=== PATIENT | female | born 1985 | race Caucasian/White ===

== ENCOUNTER 2020-07-26 11:14 | Emergency (ER) | payer OTHER, SELFPAY ==
--- NOTE | 2020-07-26 11:32 | ED.ALLEREA ---
HPI - Allergic Reaction General Chief complaint: Allergic Reaction Stated complaint: ALLERGIC REACTION Time Seen by Provider: 07/26/20 11:40 Source: patient and RN notes reviewed Mode of arrival: ambulatory Limitations: no limitations History of Present Illness HPI narrative: 34-year-old female presents with concern for rash. Reports 4 to 5-day history of a rash on her back and stomach. Reports it is intermittently pruritic. She denies difficulty breathing, difficulty swallowing, swollen lips, swollen tongue. Denies rash on any other area of her body. Denies anyone else at home has similar rash. Denies change in bath products, home care products, medicines. Denies any exposure to poison sohail, insects. MD complaint: allergic reaction Related Data Home Medications Medication Instructions Recorded Confirmed lisdexamfetamine [Vyvanse] 70 mg DAILY 07/26/20 07/26/20 lorazepam 1 mg DAILY 07/26/20 07/26/20 propranolol 10 mg BID 07/26/20 07/26/20 triamcinolone acetonide 0.1 % TOPICAL TID 07/26/20 07/26/20 venlafaxine 150 mg PO DAILY 07/26/20 07/26/20 zaleplon 10 mg HS 07/26/20 07/26/20 Allergies Allergy/AdvReac Type Severity Reaction Status Date / Time No Known Allergies Allergy Verified 07/26/20 11:20 Review of Systems Review of Systems: Narrative: CONSTITUTIONAL: Denies malaise, chills, sweats, or fever. EYES: Denies visual changes, redness, or discharge. ENT: Denies swollen lips, swollen tongue, difficulty swallowing CARDIOVASCULAR: Denies chest pain, palpitations, or edema. RESPIRATORY: Denies cough or dyspnea. GASTROINTESTINAL: Denies abdominal pain, nausea, vomiting, diarrhea SKIN: Reports itchy rash on back and abdomen MUSCULOSKELETAL: Denies myalgia. NEUROLOGIC: Denies headache. All systems reviewed & are unremarkable except as noted in HPI and below PMFSH Family History Family History (Updated 06/15/16 @ 23:21 by DOCTOR UNKNOWN) Father Depression Asthma Patient's father is in good health Family history of allergic disorder Sibling Depression Patient's sister is in good health Family history of allergic disorder Mother Patient's mother is in good health Grandparent Family history of pancreatic cancer Family history of malignant neoplasm of esophagus Diabetes mellitus Social History Social History Alcohol intake: current Gender identity (if verbalized by the patient): Female Comments At time of signature, agree with nursing past medical, surgical, social and family history. There is no relevant family history pertinent to the presenting complaint Exam Narrative: Exam Narrative: GENERAL: Well-appearing, well-nourished, and in no acute distress. HEAD: Normocephalic, atraumatic. EYES: PERRLA, conjunctivae clear ENT: Nares clear. Mucous membranes moist. Oropharynx without edema, erythema or lesions. Tonsils not enlarged and without exudate. NECK: Supple. CHEST: No respiratory distress. Speaks in full sentences. HEART: Regular rate and rhythm. No murmur heard. Normal peripheral pulses. SKIN: Warm, dry. Erythematous papular rash noted on back and abdomen. No other rash noted. NEURO: Alert and oriented x3. PSYCH: Normal mood and affect Course Course Emergency Course: Patient is aware of diagnosis, understands and agrees to treatment plan. Anticipatory guidance given. Patient agrees to follow-up as directed and is aware of reasons to seek care at the emergency department. Portions of this record may have been created with voice recognition software Vital Signs Vital signs: Vital Signs Temperature 98.2 F 07/26/20 11:35 Pulse Rate 87 07/26/20 11:35 Respiratory Rate 16 07/26/20 11:35 Blood Pressure 117/82 07/26/20 11:35 Pulse Oximetry 100 07/26/20 11:35 Temperature 98.2 F 07/26/20 11:35 Pulse Rate 87 07/26/20 11:35 Respiratory Rate 16 07/26/20 11:35 Blood Pressure 117/82 07/26/20 11:35 Pulse Oximetry 100 07/26/20 11:35 Reviewed. MDM
[2020-07-26 11:35] VITALS: BP 117/82; PULSE 87; RESP 16; TEMP 36.8; O2SAT 100
== END 2020-07-26 11:56 | disposition home or self-care (01) ==
PROVIDERS: Emergency Provider Nurse Practitioner
DX: L25.9 Unspecified contact dermatitis, unspecified cause (principal); F41.9 Anxiety disorder, unspecified; F32.9 Major depressive disorder, single episode, unspecified; F90.9 Attention-deficit hyperactivity disorder, unspecified type
CPT/HCPCS: 99213; G0463

== ENCOUNTER → 2022-08-30 12:57 | Outpatient (CLI) | payer BC, SELFPAY ==
--- NOTE | ~2022-08-30 | US_ITS ---
EXAMINATION: US pelvic complete w TV DATE: 08/30/2022 13:33 INDICATION: Other disorders of the uterus TECHNIQUE: Multiple transabdominal and endovaginal sonographic images of the pelvis were obtained. COMPARISON: 01/12/2017 FINDINGS: The uterus measures 6.9 x 3.8 x 4.9 cm. The endometrial complex measures 7 mm. There is a 5 mm hyperechoic area in the myometrium adjacent to the endometrial complex. The right ovary measures 2.2 x 1.3 x 2.0 cm. The left ovary measures 2.6 x 1.0 x 1.1 cm. There is normal vascular flow in the ovaries. There is no free fluid in the pelvis. IMPRESSION: 1. Hyperechoic area in the myometrium adjacent to the endometrial complex of unclear etiology, possib ly fibroid or adenomyosis. Reviewed, dictated and finalized at location F. IMPRESSION: 1. Hyperechoic area in the myometrium adjacent to the endometrial complex of un clear etiology, possibly fibroid or adenomyosis.
== END ==
PROVIDERS: PCP Nurse Practitioner Family; Visit Provider Nurse Practitioner Family
DX: N85.00 Endometrial hyperplasia, unspecified (principal); N95.1 Menopausal and female climacteric states
CPT/HCPCS: 76830; 76856

== ENCOUNTER 2022-12-10 01:06 | Day surgery (SDC) | payer BC, SELFPAY ==
[2022-12-03 13:20] VITALS: BMI 27.4
--- NOTE | 2022-12-03 13:27 | PC.NURSE ---
Report to the Outpatient Waiting Room, entrance under the green pavilion located off [facility], at time 1115 on date 12/10/22. Planned Procedure Time: 1315. Time changes happen often and if your time is changed the preop area will call you the afternoon before. - You and your visitor will be asked to self-screen and do not enter if you have any COVID symptoms. - Only one visitor is requested with a max of two and NO children visitors are allowed at this time. - The patient visitor may be requested to leave or wait in car when not with patient due to distancing restrictions. - A mask is optional within the hospital. Patients may have clear liquids (water, carbonated beverages, clear teas, apple juice) until 3 hours prior to surgery with a maximum of 20 ounces. - No food from midnight until time of surgery Take the following medications with a SIP of water the morning of surgery: FLUOXETINE, PROPRANOLOL, LORAZEPAM IF NEEDED Medications to discontinue per physician: N/A Date to take last dose: N/A Please no make-up, nail tajik, hairspray, perfume, deodorant, or body powder the day of surgery. No jewelry (including any body piercings) or valuables the day of surgery, leave them at home. Please take a shower or bath the night before, or the morning of, surgery with an antibacterial soap. Wear comfortable, loose fitting clothing. - Jewelry must be removed prior to entering the operating room. Rings and piercings that are not removed may be cut off. - The hospital will not accept responsibility for valuables. - Please leave all valuables, including medications, at home the day of surgery. If you are going home after surgery, a licensed trailer driver must drive you home. - NO public transportation without another adult if you receive anesthesia. - We recommend that an adult stay with you for 24 hours following discharge. - We also recommend that you do not drive, make important decision, drink alcoholic beverages, or take any drugs that were not prescribed by your health care provider for at least 24 hours after your discharge time. Follow any additional instructions given to you from your surgeon. If you or anyone in your household have experienced Covid symptoms in the past week, please notify your surgeon or the nurse liaison at the phone number below for possible testing. Telephone instructions given to PT - ELADIO SANDERS and asked if any additional questions and then verbalized understanding. Patient advised to call surgeon office or pre surgery nurse liaison [phone] if any additional questions.
--- NOTE | 2022-12-10 09:09 | WPDANESEPPF ---
Anes - Initial Pre Proc Eval Procedure: Operation Date: 12/10/22 13:15 Proposed Procedures p Hysteroscopy with Dilation and Curettage - Ellyn Anderson MD Date/Time: 12/10/22 09:09 Surgeon: Ellyn Anderson MD Pre Op Diagnosis: Abnormal Ultrasound Patient Data Age: 36 Gender: F Height: 1.65 m Weight: 74.85 kg Allergies Allergy/AdvReac Type Severity Reaction Status Date / Time No Known Allergies Allergy Verified 12/10/22 11:33 Home Medications Medication Instructions Recorded Confirmed Type lisdexamfetamine 70 mg capsule 70 mg PO DAILY 07/26/20 12/10/22 History (Vyvanse) lorazepam 1 mg tablet 1 mg PO DAILY PRN Anxiety 07/26/20 12/10/22 History propranolol 10 mg tablet 10 mg PO BID 07/26/20 12/10/22 History zaleplon 10 mg capsule 10 mg PO HS PRN Insomnia 07/26/20 12/10/22 History fluoxetine 20 mg capsule 40 mg PO DAILY 12/03/22 12/10/22 History Patient hx anesthesia problems: none Family hx anesthesia problems: none Results Review: All pre-operative results and documents have been reviewed as part of the pre-operative evaluation. [facility] Past Medical History Medical History (Updated 12/10/22 @ 09:39 by Ellyn Anderson MD) Anxiety Depression Migraines MVP (mitral valve prolapse) Surgical History Surgical History (Updated 12/10/22 @ 09:37 by Ellyn Anderson MD) History of bilateral breast reduction surgery History of 2017 abruption History of tonsillectomy Family History Family History (Updated 06/15/16 @ 23:21 by DOCTOR UNKNOWN) Father Depression Asthma Patient's father is in good health Family history of allergic disorder Sibling Depression Patient's sister is in good health Family history of allergic disorder Mother Patient's mother is in good health Grandparent Family history of pancreatic cancer Family history of malignant neoplasm of esophagus Diabetes mellitus Social History Social History Smoking status: Never smoker Alcohol intake: current Alcohol use details: 1-2/MONTH Substance use: never Substance use type: does not use Living arrangements: with family Additional living arrangements comments: SON Gender identity (if verbalized by the patient): Female Spiritual care concerns: No Anes - Eval Final PreProcedure Day of Procedure 12/10/22 09:09 Patient weight: overweight Heart: regular rate and rhythm Lungs: clear to auscultation and normal air movement Airway: Mallampati scale class II Neurological: alert and oriented Last oral intake: >/= 8 hours ASA classification: II Emergent: no Anesthetic plan: proceed Anesthesia type and monitoring: general GIVS and LMA Results Review: All pre-operative results and documents have been reviewed as part of the pre-operative evaluation. Informed Consent: The patient's anesthetic plan and its attendant risks and benefits were discussed with the patient/family/POA. Questions were solicited and answers provided to the satisfaction of the patient/family/POA.
--- NOTE | 2022-12-10 09:33 | WPDHPUPDATE1 ---
History and Physical Update Update Date/Time: 12/10/22 09:33 History and Physical has been reviewed, including an updated exam of the patient. There are NO changes in the patient's condition. Risks, benefits, and alternatives have been discussed and questions answered. Patient agrees to proceed with procedure.
--- NOTE | 2022-12-10 09:33 | PM.HPGS ---
History of Present Illness History of Present Illness Consent: Risks, benefits, and alternatives have been discussed and questions answered. Patient agrees to proceed with procedure. Chief complaint: Abnormal Ultrasound Narrative: Cayla Bills is a 36 year old female with an abnormal hyperechoic area of the myometrium adjacent to the endometrial complex of uncertain etiology. Patient states no abnormal bleeding. Was recommended to further evaluate with hysteroscopy and D& C. Risks of infection, bleeding, perforation, and possible pathology are reviewed. Patient voices understanding and agrees to proceed. Review of Systems Constitutional: Constitutional: Reports fatigue Musculoskeletal: Musculoskeletal: Reports back pain and Reports neck pain Neurologic: Reports headache(s) Psychiatric: Psychiatric: Reports anxiety and Reports depression PMFSH Past Medical History Medical History (Updated 12/10/22 @ 09:39 by Ellyn Anderson MD) Anxiety Depression Migraines MVP (mitral valve prolapse) Surgical History Surgical History (Updated 12/10/22 @ 09:37 by Ellyn Anderson MD) History of bilateral breast reduction surgery History of 2017 abruption History of tonsillectomy Family History Family History (Updated 06/15/16 @ 23:21 by DOCTOR UNKNOWN) Father Depression Asthma Patient's father is in good health Family history of allergic disorder Sibling Depression Patient's sister is in good health Family history of allergic disorder Mother Patient's mother is in good health Grandparent Family history of pancreatic cancer Family history of malignant neoplasm of esophagus Diabetes mellitus Social History Social History Smoking status: Never smoker Alcohol intake: current Alcohol use details: 1-2/MONTH Substance use: never Substance use type: does not use Living arrangements: with family Additional living arrangements comments: SON Gender identity (if verbalized by the patient): Female Spiritual care concerns: No Meds Home Medications and Allergies Home Medications Medication Instructions Recorded Confirmed Type lisdexamfetamine 70 mg capsule 70 mg PO DAILY 07/26/20 12/03/22 History (Randy) lorazepam 1 mg tablet 1 mg PO DAILY PRN Anxiety 07/26/20 12/03/22 History propranolol 10 mg tablet 10 mg PO BID 07/26/20 12/03/22 History zaleplon 10 mg capsule 10 mg PO HS PRN Insomnia 07/26/20 12/03/22 History fluoxetine 20 mg capsule 40 mg PO DAILY 12/03/22 12/03/22 History Allergies Allergy/AdvReac Type Severity Reaction Status Date / Time No Known Allergies Allergy Verified 12/03/22 13:17 Exam Const: General: healthy appearing and alert Orientation/consciousness: patient oriented x3 Resp: Effort & Inspection: normal respiratory effort GI: GI Palp: Yes Soft to palpation, No Tenderness to palpation present (GI) and No Palpable mass present : External Female Exam: normal external appearance Speculum Exam - Vagina: normal appearance of the vagina and normal vaginal discharge Speculum Exam - Cervix: normal appearance of the cervix Bimanual exam- vagina & uterus: uterine size normal and consistency normal Bimanual Exam- Adnexa, other: normal adnexae and No adnexal tenderness Neuro: General: patient oriented x3 Assessment and Plan Assessment and plan (1) Abnormal pelvic ultrasound: Code(s): R93.89 - Abnormal findings on diagnostic imaging of other specified body structures Status: Acute Assessment and Plan: plan to proceed with D&C hysteroscopy
[2022-12-10 11:32] VITALS: BP 103/82; PULSE 89; RESP 20; TEMP 36.8; O2SAT 98
[2022-12-10] MEDS: ACETAMINOPHEN 500 MG TABLET 1000 MG PO (11:37)
[2022-12-10] MEDS: LACTATED RINGERS 1,000 ML 30 ML IV CONT (11:55)
[2022-12-10] MEDS: LIDOCAINE HCL 1% PF 30 ML VIAL 10 ML INFILTRATE (12:49)
[2022-12-10 13:05] VITALS: BP 120/65; PULSE 62; RESP 14; O2SAT 98
--- NOTE | 2022-12-10 13:06 | W.PM.PROC2 ---
Procedure Note - Detailed Date of Procedure 12/10/22 Pre-op Diagnosis Abnormal Ultrasound Post-op Diagnosis Same Procedure Performed D&C hysteroscopy Surgeon Ellyn Anderson MD Anesthesia MAC and Local Description of Procedure The patient has been taken to the operating room and placed under anesthesia in the dorsal position. She was prepped and draped in the usual sterile fashion. The bivalve speculum was placed in the vagina and the cervix grasped on the anterior lip with a tenaculum. The cervix is injected in each quadrant with 1% lidocaine. The uterus is sounded to 9cm and noted to be retroverted. The cervix is serially dilated to an 8 Hegar. The diagnostic hysteroscope was placed with no abnormalities noted. The hysteroscope was removed and the sharp curette used to curette the endometrium until a good uterine cry was noted in all areas. The tenaculum was removed and the site noted to be bleeding briskly. Monsel's solution was applied with good hemostasis noted. Sponge, needle, and instrument counts are correct per the OR staff. Patient is awakened from anesthesia and taken to recovery in stable condition. Estimated Blood Loss 5 Drains No Packing No Pathology Yes ( Endometrial curettings) Complications No immediate complications Condition Stable Disposition PACU
[2022-12-10] MEDS: KETOROLAC 30 MG/ML VIAL (*BKC) IV PUSH (13:17)
[2022-12-10 13:35] VITALS: BP 100/66; PULSE 68; RESP 16; O2SAT 97
[2022-12-10 14:05] VITALS: BP 103/75; PULSE 61; RESP 16; O2SAT 97
[2022-12-10] MEDS: oxyCODONE HCL (*CRX) 5 MG TAB IR PO (14:12)
[2022-12-10 14:35] VITALS: BP 101/75; PULSE 65; RESP 16
== END 2022-12-10 14:50 | disposition home or self-care (01) ==
PROVIDERS: Visit Provider Obstetrics & Gynecology Gynecology
PROC: 0U5B8ZZ Destruction of Endometrium, Via Natural or Artificial Opening Endoscopic (ICD-10-PCS; CPT 58563; principal; 2022-12-10 13:15)
DX: R93.89 Abnormal findings on diagnostic imaging of other specified body structures (principal); I34.1 Nonrheumatic mitral (valve) prolapse; F41.9 Anxiety disorder, unspecified; F32.A Depression, unspecified
CPT/HCPCS: 58558; 88305; A9270; J1885; J2250; J2704; J3010; J7030; J7120

== ENCOUNTER 2024-12-08 23:56 | Emergency (ER) | payer OTHER, SELFPAY ==
[2024-12-09 00:08] VITALS: BP 102/76; PULSE 82; RESP 15; TEMP 36.8; O2SAT 100
--- NOTE | 2024-12-09 00:55 | ED_ITS ---
HPI - Eye Problem General Chief complaint: Eye Problems Stated complaint: eye pain Time Seen by Provider: 12/09/24 00:22 History of Present Illness HPI Narrative: Patient is a 38-year-old female who presents to the emergency department this evening complaining of pain to the right eye. Patient states that she woke up this morning and noticed that her right eye is red and unsure of what caused it. Admits that she does have some itching as well. States that pain progressively got worse throughout the day so she decided to come to the emergency department for further evaluation. Denies any known irritants, any new face wash or makeup, and does not believe that she got any foreign bodies in her eye. Denies any additional symptoms or concerns at this time. Related Data Home Medications ?Medication ?Instructions ?Recorded ?Confirmed ?Last Taken ?Type lorazepam 1 mg tablet 1 mg PO DAILY PRN Anxiety 07/26/20 05/25/24 12/09/22 History propranolol 10 mg tablet 10 mg PO BID 07/26/20 05/25/24 12/09/22 History zaleplon 10 mg capsule 10 mg PO HS PRN Insomnia 07/26/20 05/25/24 Unknown History fluoxetine 20 mg capsule 40 mg PO DAILY 12/03/22 05/25/24 12/10/22 09:00 History cyanocobalamin (vitamin B-12) 1,000 mcg PO DAILY 12/30/23 05/25/24 Unknown History 1,000 mcg capsule ergocalciferol (vitamin D2) 1,250 1,250 mcg PO WEEKLY 12/30/23 05/25/24 Unknown History mcg (50,000 unit) capsule (Vitamin D2) fluoxetine 20 mg capsule 20 mg PO DAILY 12/30/23 05/25/24 Unknown History levonorgestrel (Mirena) 1 device intrauterine ONCE 12/30/23 05/25/24 Unknown History methylphenidate HCl 80 mg 80 mg PO QHS 05/25/24 05/25/24 Unknown History capsule,delayed release,ext release sprinkle (Jornay PM) Allergies Allergy/AdvReac Type Severity Reaction Status Date / Time No Known Allergies Allergy Verified 12/09/24 00:17 Review of Systems Review of Systems: All systems are reviewed and are negative unless stated otherwise in the HPI. [facility] Past Medical History Medical History Heart disease Migraines Depression Anxiety MVP (mitral valve prolapse) Surgical History Surgical History History of hysteroscopy History of bilateral breast reduction surgery History of tonsillectomy History of 2017 abruption Family History Family History Father Depression Asthma Patient's father is in good health Family history of allergic disorder Sibling Depression Patient's sister is in good health Family history of allergic disorder Mother Patient's mother is in good health Grandparent Family history of pancreatic cancer Family history of malignant neoplasm of esophagus Diabetes mellitus Social History Social History Smoking status: Never smoker Alcohol intake: current Alcohol use details: 1-2/MONTH Substance use: never Substance use type: does not use Do You Feel Safe in your Home?: Yes Lack of Transportation: No Lack of Food: Never True Current Housing: I Have Housing Concerned About Future Housing: No Difficulty Paying Gas/Electric Bills: No Difficulty Paying for Meds: No Currently Unemployed: No Education: Bachelor's Degree Difficulty w/ Childcare or Family Care: No Living arrangements: with family Additional living arrangements comments: SON Gender identity (if verbalized by the patient): Female Spiritual care concerns: No Exam Narrative: General: Alert, awake, afebrile, in no acute distress. HEENT: PERRL, no rhinorrhea, no post nasal drip, oropharynx clear, right conjunctival injection, intact EOM. Neck: Trachea midline, no JVD, no lymphadenopathy. Cardiovascular: Regular rate and rhythm, no murmurs, rubs or gallops, no peripheral edema. Respiratory: Clear to auscultation bilaterally, no tachypnea, no wheezing, no rhonchi, no rubs, no respiratory distress. Abdomen: Soft, nontender, nondistended, no rebound, no guarding, no peritoneal signs. Musculoskeletal: No joint swelling or deformity, normal muscle tone. Skin: No rashes or petechia, no signs of infection. Psychiatric: Alert and oriented, normal behavior and judgment for situation. Neurological: Alert and oriented to person, place, and time. Follows all commands. No focal deficits, speech is clear and fluent. Course Vital Signs Vital signs: Vital Signs Temperature 98.3 F 12/09/24 00:08 Pulse Rate 82 12/09/24 00:08 Respiratory Rate 15 12/09/24 00:08 Blood Pressure 102/76 12/09/24 00:08 Pulse Oximetry 100 12/09/24 00:08 Oxygen Delivery Room Air 12/09/24 00:08 Temperature 98.3 F 12/09/24 00:08 Pulse Rate 82 12/09/24 00:08 Respiratory Rate 15 12/09/24 00:08 Blood Pressure 102/76 12/09/24 00:08 Pulse Oximetry 100 12/09/24 00:08 Oxygen Delivery Room Air 12/09/24 00:08 MDM - Eye Problem MDM Narrative Medical decision making narrative: The patient was evaluated by myself in the emergency department. History is obtained from patient who is an independent historian and physical exam was performed. External medical records were reviewed at this time. Patient's right eye was stained with fluorescein dye and tetracaine drops under Wood's lamp revealing a corneal abrasion at the 9 o'clock position. No foreign body identified. Patient was informed that she will be started on antibiotic eye drops to use as prescribed and that she will need to follow-up with her eye doctor within the next 48 hours and patient is agreeable with this plan. Patient was started with ofloxacin eyedrops in the emergency department and was instructed that she will continue this at home and patient is agreeable. Differential diagnosis considerations include bacterial versus viral conjunctivitis, corneal abrasion. Comorbidities impacting this visit include none. I have evaluated and discussed social determinants of health with the patient that could potentially impact subsequent diagnosis and treatment plans. On repeat assessment of the patient, reevaluation revealed that the patient is doing well and is in no acute distress. Patient symptoms have improved since she arrived to our emergency department. Repeat vital signs were all reviewed and noted to be stable. Differential diagnosis and treatment plan were discussed with the patient at bedside. Patient agrees with discussion and after shared medical decision making agrees with discharge. All questions were answered to the patient's satisfaction. Patient will follow up with Ophthalmology in 2-3 days. Patient was provided with strict return precautions and instructed to return to the emergency department if any new or worsening symptoms develop. The patient was discharged in stable condition. Discharge Plan Discharge Clinical Impression: Abrasion, corneal Patient Disposition: Home, Self-Care Condition: Improved Instructions: Antibiotic Form Additional Instructions: Please follow-up with ophthalmology or with the [facility] within the next 2-3 days. Phone number for [facility] is [phone], address: [address] [place] [id number]. Return to the emergency department if any new or worsening symptoms develop. Use antibiotics drops as instructed, 2 drops in the right 4 times daily for 5 days. Patient Language: Puerto Rican Prescriptions: No Action propranolol 10 mg tablet 10 mg PO BID zaleplon 10 mg capsule 10 mg PO HS PRN (Reason: Insomnia) lorazepam 1 mg tablet 1 mg PO DAILY PRN (Reason: Anxiety) fluoxetine 20 mg capsule 20 mg PO DAILY cyanocobalamin (vitamin B-12) 1,000 mcg capsule 1,000 mcg PO DAILY ergocalciferol (vitamin D2) [Vitamin D2] 1,250 mcg (50,000 unit) capsule 1,250 mcg PO WEEKLY Mirena 21 mcg/24 hours (8 yrs) 52 mg intrauterine device 1 device intrauterine ONCE Rx Instructions: Inserted 01/09 Jornay PM 80 mg capsule,del rel,ext rel sprink 80 mg PO QHS fluconazole 150 mg tablet 150 mg PO ONCE Qty: 2 0RF Rx Instructions: May repeat dose in 72 if still symptoms. fluoxetine 20 mg capsule 40 mg PO DAILY Follow-up/Referrals: PHYSICIAN,[facility] [Primary Care Provider] - 3 Days Time of Disposition: 00:59
[2024-12-09 01:39] VITALS: BP 106/54; PULSE 82; RESP 15; O2SAT 100
[2024-12-09] MEDS: OFLOXACIN 0.3% OPHTH SOLN 5 ML BTL 1 DROP RIGHT EYE (01:39)
--- OUTSIDE RECORDS SUMMARY | 2024-12-10 20:48 | XMS_ITS | Data Portability ---
Author Organization [facility], Main Office Address [address] [place] [address] Assessment No assessment recorded. Plan of Treatment Reminders Order Date Submit Date Provider Last Modified By Organization Details Last Modified Time Details Appointments None recorded. Lab vitamin D, 25-hydroxy, total, serum 2022 023 CODI Gonzalez, 2022 Luis Stevenson, [address], [place], [address], 3 14:48:13 prolactin, serum 2022 023 CODI Gonzalez, 2022 Luis Stevenson, [address], [place], [address], 3 14:39:34 dhea-sulfat e, serum 2022 023 CODI Gonzalez, 2022 Luis Stevenson, [address], [place], [address], 3 14:39:34 estradiol, serum 2022 023 CODI Gonzalez, 2022 Luis Stevenson, [address], [place], [address], 3 14:39:33 lh + FSH, serum 2022 023 CODI Gonzalez, 2022 Luis Stevenson, [address], [place], [address], 3 14:39:32 testosteron e, free + total, serum 2022 023 CODI Gonzalez, 2022 Luis Stevenson, [address], [place], [address], 3 14:39:33 progesteron e, serum 2022 023 CODI Gonzalez, 2022 Luis Stevenson, [address], [place], [address], 3 14:39:32 insulin, serum 2022 023 CODI Gonzalez, 2022 Luis Stevenson, [address], [place], [address], 3 14:39:32 folate, serum 2022 023 CODI Gonzalez, 2022 Luis Stevenson, [address], [place], [address], 3 14:34:33 vitamin B12, serum 2022 023 CODI Gonzalez, 2022 Luis Stevenson, [address], [place], [address], 3 14:34:32 TSH + free T4, serum 2022 023 CODI Gonzalez, 2022 Luis Stevenson, [address], [place], [address], 3 14:34:33 iron + total iron-bindin g capacity (TIBC), serum 2022 023 CODI Gonzalez, 2022 Luis Stevenson, [address], [place], [address], 3 14:34:33 CMP, serum or plasma 2022 023 CODI Gonzalez, 2022 Luis Stevenson, [address], [place], [address], 3 14:34:32 TSH + free T4, serum 2022 023 CODI Gonzalez, 2022 Luis Stevenson, [address], [place], [address], 3 14:39:31 triiodothyr onine free, QN, IA, serum or plasma 2022 023 [facility], 2022 Luis Stevenson, [address], [place], [address], 3 14:39:33 T3, free, serum or plasma 2022 023 [facility], 2022 Luis Stevenson, [address], [place], [address], 3 14:39:32 TSH, serum or plasma 2022 023 [facility], 2022 Luis Stevenson, [address], [place], [address], 3 14:39:32 T4, free, serum 2022 023 [facility], 2022 Luis Stevenson, [address], [place], [address], 3 14:39:34 acth, plasma 2022 023 [facility], 2022 Luis Stevenson, [address], [place], [address], 3 14:39:33 thyroid peroxidase (tpo) Ab, serum 2022 023 [facility], 2022 Luis Stevenson, [address], [place], [address], 3 14:39:31 cortisol, am, serum 2022 023 [facility], 2022 Luis Stevenson, [address], [place], [address], 14:39:33 iodine, serum 2022 023 [facility], 2022 Luis Stevenson, [address], [place], [address], 3 14:40:06 Referral None recorded. Procedures None recorded. Surgeries None recorded. Imaging None recorded. Medication Orders ergocalcife rol (vitamin D2) 1,250 mcg (50,000 unit) capsule 2022 023 [id number], [address] [facility], [place], [place], [id number], 3 14:48:11 cyanocobala min (vit B-12) 1,000 mcg/mL injection solution 2022 023 [facility] #[id number], [address], [place], [place], [id number], 3 14:34:30 Patient TargetsNo targets recorded. Patient InstructionsNo instructions recorded. Reason for Referral None Reported. Results Created Date Observation Date Name Description Value Unit Range Abnormal Flag Note LastModifiedBy Organization Detail LastModifiedTime Result Notes None recorded. Problems Name Problem SNOMED Code Status Onset Date Resolution Date Notes Provider Name and Address Organization Details Recorded Time Insomnia 938148747 Active 2018 Not Available [facility] 3 10:45:50 Depressive disorder 99941926 Active 2018 Not Available [facility] 3 10:45:50 Fatigue 46780947 Active 2022 MD [address], [place], [address] , [employer] 3 14:28:57 Disorder of vitamin B12 861693395 Active 2022 MD [address], [place], [address] , [employer] 3 14:31:44 Irregular periods 97253427 Active 2022 MD [address]ina [address], [place], [address] , [employer] 14:36:40 Vitamin D deficiency 50312573 Active 2022 Delisa Fernandez MD [address] [facility] [facility] [address], [place], [address] , [facility] [employer] [facility] 14:47:39 Problem Notes None recorded. Procedures Surgical History Date Name Laterality Status Provider Name and Address Organization Details Recorded Time Tonsillectomy completed Miranda Marie [facility] [employer] [facility] 01/17/2023 14:12:48 Breast reduction completed Miranda Bobkeysha [facility] [employer] [facility] 01/17/2023 14:12:53 delivery completed Miranda Bobkeysha [facility] [employer] [facility] 01/17/2023 14:12:59 Imaging Results None recorded. Procedure Notes None recorded. Medical Equipment None Reported. Medications Name Sig Start Date Stop Date Status Note LastModified by Organization Details LastModified Time insulin syringe 31g x 5/16 1 ml mi insulin syringe 31g x 5/16 1 ml mi sc active Not Available Not Available Not Available fluoxetine 40 mg capsule twice a day. active Not Available Not Available No t Available venlafaxine ER 37.5 mg capsule,ext ended release 24 hr 01/17 completed Not Available Not Available Not Available fluconazole 150 mg tablet 07/01 completed Not Available Not Available Not Available hydrocodone 5 mg-acetamin ophen 325 mg tablet 06/19 completed Not Available Not Available Not Available clonazepam 0.5 mg tablet 07/01 completed Not Available Not Available Not Available sertraline 100 mg tablet 06/19 completed Not Available Not Available Not Available venlafaxine ER 150 mg capsule,ext ended release 24 hr 01/17 completed Not Available Not Available Not Available penicillin V potassium 500 mg tablet 06/19 completed Not Available Not Available Not Available hydroxyzine HCl 50 mg tablet 06/19 completed Not Available Not Available Not Available sulfamethox azole 800 mg-trimetho prim 160 mg tablet 01/17 completed Not Available Not Available Not Available bupropion HCl SR 100 mg tablet,12 hr sustained-r elease 01/17 completed Not Available Not Available Not Available propranolol 10 mg tablet active Not Available Not Available Not Available alprazolam 0.25 mg tablet 06/19 completed Not Available Not Available Not Available amitriptyli ne 25 mg tablet 06/19 completed Not Available Not Available Not Available cephalexin 500 mg capsule 06/19 completed Not Available Not Available Not Available cyanocobala min (vit B-12) 1,000 mcg/mL injection solution Inject 1 mL every week by subcutane ous route in the morning for 90 days. active Not Available Not Available No t Available dextroamphe tamine-amph etamine 20 mg tablet TAKE 1 TABLET BY MOUTH TWICE DAILY 01/17 completed Not Available Not Available Not Available buspirone 7.5 mg tablet 06/19 completed Not Available Not Available Not Available insulin syringe U-100 with needle 1 mL 31 gauge x 04/02 USE TO INJECT WEEKLY active Not Available Not Available No t Available hydroxyzine HCl 25 mg tablet TK 1 T PO BID PRF ITCHING OR FEELING ANXIOUS 01/17 completed Not Available Not Available Not Available zaleplon 10 mg capsule TAKE 1 CAPSULE BY MOUTH EVERY DAY AT BEDTIME active Not Available Not Available No t Available ergocalcife rol (vitamin D2) 1,250 mcg (50,000 unit) capsule TAKE 1 CAPSULE BY MOUTH 1 TIME A WEEK WITH A FULL MEAL active Not Available Not Available No t Available lorazepam 1 mg tablet TAKE 1 AND 1/2 TABLETS BY MOUTH EVERY DAY NEEDED active Not Available Not Available No t Available ondansetron 4 mg disintegrat ing tablet 01/17 completed Not Available Not Available Not Available fluoxetine 20 mg capsule TAKE 3 CAPSULES BY MOUTH EVERY DAY 01/17 completed Not Available Not Available Not Available sertraline 50 mg tablet 06/19 completed Not Available Not Available Not Available buspirone 15 mg tablet 06/19 completed Not Available Not Available Not Available nitrofurant oin monohydrate /macrocryst als 100 mg capsule TAKE 1 CAPSULE BY MOUTH EVERY 12 HOURS 01/17 completed Not Available Not Available Not Available eszopiclone 2 mg tablet 01/17 completed Not Available Not Available Not Available Vyvanse 50 mg capsule 06/19 completed Not Available Not Available Not Available Vyvanse 70 mg capsule TAKE 1 CAPSULE BY MOUTH EVERY DAY active Not Available Not Available No t Available Vyvanse 60 mg capsule TAKE 1 CAPSULE BY MOUTH EVERY MORNING FOR 30 DAYS 07/02 completed Not Available Not Available Not Available Vyvanse 40 mg capsule 06/19 completed Not Available Not Available Not Available melatonin 5 mg tablet TK 3 TS PO QHS active Not Available Not Available No t Available Latuda 20 mg tablet 01/17 completed Not Available Not Available Not Available CHARTER COORDINATOR-PNV-DHA 28 mg iron-1 mg-200 mg capsule 07/02 completed Not Available Not Available Not Available L-Methylfol ate Forte 7.5 mg-90.314 mg capsule 01/17 completed Not Available Not Available Not Available Belsomra 15 mg tablet TAKE 1 TABLET BY MOUTH EVERY DAY AT BEDTIME 01/17 completed Not Available Not Available Not Available Belsomra 10 mg tablet TAKE 1 TABLET BY MOUTH EVERY DAY AT BEDTIME 01/17 completed Not Available Not Available Not Available Belsomra 20 mg tablet TAKE 1 TABLET BY MOUTH EVERY DAY AT BEDTIME 01/17 completed Not Available Not Available Not Available Aristada 662 mg/2.4 mL suspension, extend.rel. IM syringe 01/17 completed Not Available Not Available Not Available Aristada 441 mg/1.6 mL suspension, extend.rel. IM syringe 01/17 completed Not Available Not Available Not Available Ozempic 0.25 mg or 0.5 mg (2 mg/1.5 mL) subcutaneou s pen injector INJECT 0.5MG SUBCUTANE OUS EVERY WEEK active Not Available Not Available No t Available Vitals Date Recorded Body weight Body temperature Heart rate Respiratory rate Body height Body mass index (BMI) Systolic blood pressure Diastolic blood pressure Provider Name and Address Organization Details Last Updated DateTime 3 06135.1 5 g 97.6 [degF] 78 /min 17 /min 165.1 cm 27.3 kg/m2 128 mm[Hg] 82 mm[Hg] Miranda Marie CMA [employer] 14:08:29 Social History Question Answer Notes LastModified by Organizat ion Details LastModified Time Tobacco Smoking Status Never Smoker Miranda Marie CMA null, [employer] [facility] 01/17/2023 14:12:34 What Is Your Level Of Alcohol Consumption? Occasional [email or web address] Information not available 01/17/2023 Sex: Unknown Functional Status None recorded. Mental Status None recorded. Family History Nothing Reported. Medical History Condition Response BLINDNESS N RHEUMATIC FEVER N MRSA N BACK INJECTIONS N INFECTIOUS DISEASE N LUNG DISEASE/DISORDER N HEART ARRHYTHMIA N HISTORY OF DRUG ABUSE N INSOMNIA N ESRD N COPD N RADIATION / CHEMOTHERAPY N HIGH CHOLESTEROL / HYPERLIPIDEMIA N EYE PROBLEMS N HYPERTHYROIDISM N PVD N BLOOD DISEASES N EDEMA N SURGERY N HYPOTHYROIDISM N SHINGLES N DEPRESSION (INCLUDING POST ) N HAVE YOU BEEN HOSPITALIZED OR SEEN IN [facility] ER IN THE PAST YEAR ? N FAILED BACK SYNDROME N STROKE/TIA N THYROID DISEASE N BENIGN PROSTATIC HYPERPLASIA N POLYCYSTIC OVARIES N OBESITY N EXCESSIVE PERSPIRATION N GERD/NAUSEA N ANEURYSM N OSTEOPOROSIS N Do you have Advance directive? N ARTHRITIS N USE OF BLOOD THINNERS N NO SIGNIFICANT PAST MEDICAL HISTORY N SKIN PROBLEMS N DIABETES, TYPE N VON WILLIBRAND'S DISEASE N PARATHYROID DISEASE N BLOOD CLOTS N POST LAMINECTOMY SYNDROME N HEPATITIS / LIVER DISEASE N GOUT N ALZHEIMER'S DISEASE N ARTERIAL INSUFFICIENCY N HERPES N RETINOPATHY N HEADACHES/MIGRAINES N SEIZURES/EPILEPSY N GI PROBLEMS N Low Testosterone N DIZZINESS N HEART DISEASE/HEART PROBLEMS N AIDS/HIV N KIDNEY DISEASE N LIVER DISEASE N MALE HYPOGONADISM N NEUROPSYCHOLOGICAL N HYPERTENSION N CANCER: SPECIFY N TOURETTE'S N BLOOD TRANSFUSION N ANEMIA/BLOOD DISORDER N ATRIAL FIBRILLATION N AUTOIMMUNE DISEASE N TUBERCULOSIS N GLAUCOMA N Gynecological HistoryNo gynecological history recorded. Obstetrics History GPAL:G 0 P 0 0 0 0 Past Encounters Encounter ID Performer Location Encounter Start Date Encounter Closed Date Diagnosis/Indication Diagnosis SNOMED-CT Code Diagnosis ICD10 Code Diagnosis Note [id number] Delisa Fernandez MD [facility] [address] [place] [address] 01/17/2023 13:51:27 01/17/2023 14:51:45 Fatigue 33243136 R53.83 Will send for thyroid antibodies to screen for autoimmune thyroid disease in addition to CBC, CMP, acth/corti annmarie ferritin and B12/folate to screen for other potential secondary causes of fatigue. She had mild enlargemen t of her thyroid lobes with no change in echogenici ty at this time and no evidence of nodules- may be early iodine deficiency - will send in serum levels to screen further. Disorder o f vitamin B12 566343974 E53.8 Trial on B12 injections as she doesn't absorb tablets/ vitamins regularly. Irregular periods 042519 07 N92.6 Send for hormone panel to screen for any evidence of hyperinsul inemia or hyperandro genemia. Vitamin D deficiency 347 35493 E55.9 Found to be deficient on previous labwork- will start on vitamin D 94573 IU once weekly. Spent up to 45 minutes preparing to see the patient (eg, review of tests), obtaining and/or reviewing separately obtained history, performing a medically appropriat e examinatio n and evaluation , counseling and educating the patient, ordering medication s, tests, along with documentin g clinical informatio n in the electronic health record, independen tly interpreti ng results and communicat ing results to the patient. RTC in 2-3 months. Patient was provided a handwritte n lab order which contains our fax number. If she chooses to go outside of the [facility] system to obtain labwork she was advised to provide our fax number and my informatio n to the lab she will be obtaining labwork from in order to have her labs properly forwarded over for me to review so there is no loss of follow up due to use of outside network. She was also advised to contact our clinic informing us that she has completed her labwork so we are aware we will need to reach out to the appropriat e laboratory to request her results be forwarded to us so I might have the ability to review and make further medical decision making in her case. She voiced understand ing. Thank you for this consultati on. Health Concerns Section Related Observation LastModified by Organization Detai ls LastModified Time None Recorded Concern Status LastModified by Organization Details LastModified Time None Recorded Advance Directives Directive None Recorded Payers Encounter Date Sequence Insurance Name Policy Number Policy Matthew Covered Member ID Matthew Member ID Guarantor Name 01/17/2023 1 [place] [id number] Cayla Bills [id number] Cayla Bills Notes Date Note Type Note Provider Name and Address Organization Details Recorded Time 01/17/2023 text/html 37 yo female com es in as referral for management of thyroid concerns, fatigue and hx of irregular cycles. thyroid u/s from 11/02/22:enlargeme nt of right and left lobes with no nodules, vascularity normal and normal appearance Her mother has hx of hashimotos thyroiditis. She has an aunt on thyroid replacement. labs older from 2020:TSH of 0.320 uIU/mlFT4 of 1.28 ng/dLvit D 28 ng/mL She does feel like she has most symptoms of thyroid disease. However She went through depression 5 years ago and on fluoxetine. She was trying to lose weight for some time and even with exercise - she saw no results. She is on ozempic 0.5 mg once weekly- she doesn't take this consistently and very sporadic in how she takes this. She has a lot of fatigue and maybe having a young child. She was looking into taking testosterone pellets-she had a pelvic ultrasound and was found to have growth in her uterus- she had hysteroscopy and this was normal-had IUD placed and her periods were overall normal. No significant bleeding or pain. Delisa Fernandez MD [address] [place] [address], [place], [address], [place] - [facility] 01/17/2023 14:51:11 OBGyn Episode No OBEpisode recorded.
--- OUTSIDE RECORDS SUMMARY | 2024-12-10 20:48 | XMS_ITS | Clinical Summary ---
Author Organization [facility] Address [address] [place] [address] Care Team Providers Care Orthodontist Vice President Name Role Phone Janie Chapman Primary Care Pr ovider Source Comments [facility],non-owned Affiliates and Associated Physician Practices is amultiple site organization consisting of ambulatory clinics and hospital sitesin [place], [place], [place] and [place]. This disclosure is being madepursuant to the Care Everywhere program and may not contain all information available regarding this patient. Last updated 18.[facility] Allergies No known active allergies Medications * Be aware that medications may not be up to date on this document. Alwaysverify current medications with the patient. Medication Sig Dispensed Refills Start Date End Date Status zaleplon (SONATA) 10 MG capsuleIndications :Insomnia Take 1 capsule by mouth nightly as needed for Insomnia Reasons: Trouble Sleeping 30 capsule 1 08/28/2017 Active melatonin 5 MG tabletIndications: Insomnia Take 3 tablets by mouth at bedtime Reasons: Trouble Sleeping 90 tablet 08/28/2017 Active Additional Information Patient taking differently: 20 mgOral AT BEDTIME, Indications: Insomnia, Reported on 03/11/2019 FLUoxetine HCl (PROZAC PO) Take 80 mg by mouth Acti ve LORAZEPAM PO Take 1 mg by mouth 2 times daily Active lisdexamfetamine (VYVANSE) 60 MG capsule Take 70 mg by mouth once daily Active Ergocalciferol (VITAMIN D2 PO) Take 50,000 Units by mouth every 7 days Active cyanocobalamin (VITAMIN B-12) 1000 MCG tablet Take 1,000 mcg by mouth once daily Active lurasidone (LATUDA) 20 MG tablet Take 20 mg by mouth daily with breakfast Active Levonorgestrel (MIRENA, 52 MG, IU) Active Active Problems Problem Noted Date Diagnosed Date 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 Depressive episode 08/28/2017 depression 08/28/2017 Family History Medical History Relation Name Comments Hypertension Father Diabetes - Type 2 Paternal Grandfather Relation Name Status Comments Father Alive Mother Alive Paternal Grandfather Social History Tobacco Use Types Packs/Day Years Used Date Smoking Tobacco: Never Smokeless Tobacco: Never Alcohol Use Standard Drinks/Week Comments Yes 1 (1 standard drink = 0.6 oz pur e alcohol) socially Sex and Gender Information Value Date Recorded Sex Assigned at Not on file Gender Identity Not on file Sexual Orientation Not on file Last Filed Vital Signs Vital Sign Reading Time Taken Comments Blood Pressure 114/68 03/25/2019 2:35 PM CDT Pulse 90 03/25/2019 2:35 PM CDT Temperature 36.8 ??C (98.2 ??F) 03/25/2019 2:35 PM CD T Respiratory Rate 16 03/25/2019 2:35 PM CDT Oxygen Saturation 98% 03/25/2019 2:35 PM CDT Inhaled Oxygen Concentration - - Weight 59 kg (130 lb) 03/25/2019 2:35 PM CDT Height 165.1 cm (5' 5 ) 03/25/2019 2:35 PM CDT Body Mass Index 21.63 03/25/2019 2:35 PM CDT Plan of Treatment Health Maintenance Due Date Last Done Comments LIPID TESTING 1983 MAMMOGRAM 1983 PAP SMEAR 1983 HIV SCREENING 1998 HEPATITIS C SCREENING 12/20/2001 DTAP/TDAP/TD VACCINES (1 - Tdap) 2002 HEPATITIS B VACCINE (1 of 3 - 19+ 3-dose series) 2002 COVID-19 VACCINE ( - 2023-2 5 season) 2024 INFLUENZA VACCINE (#1) 2024 DEPRESSION SCREENING 11/18/2024 ZOSTER VACCINE (1 of 2) 2033 HIB VACCINE Aged Out No longer eligi ble based on patient's age to complete this topic HPV VACCINE Aged Out No longer eligi ble based on patient's age to complete this topic MENINGOCOCCAL (Group B) VACCINE Aged Out No longer eligible based on patient's age to complete this topic MENINGOCOCCAL VACCINE Aged Out No shanta nehemiah eligible based on patient's age to complete this topic PNEUMOCOCCAL VACCINE Aged Out No long er eligible based on patient's age to complete this topic Advance Directives * Full Code (Latest Code Status on File) Date Activated Date Inactivated Comments 08/28/2017 6:29 AM 08/28/2017 3:20 PM Care Teams Orthodontist Vice President Relationship Specialty Start Date End Date Janie Chapman PA [address] [place] [address] [place] [phone] PCP - General Physician Tailing Machine Operator 03/11/19
--- OUTSIDE RECORDS SUMMARY | 2024-12-10 20:48 | XMS_ITS | Referral Summary ---
Author Organization [facility] Address [address] [facility] [facility] [place] [address] Care Team Providers Care Gas Main Fitter Helper Name Role Phone Janie Chapman Primary Care Pr ovider Source Comments [facility],non-owned Affiliates and Associated Physician Practices is amultiple site organization consisting of ambulatory clinics and hospital sitesin [place], [place], [place] and [place]. This disclosure is being madepursuant to the Care Everywhere program and may not contain all information available regarding this patient. Last updated 18.[facility] Allergies No known active allergies Medications * [...] features 03/11/2019 Depressive episode 08/28/2017 depression 08/28/2017 Social History Tobacco Use Types Packs/Day Years [...] Mass Index 21.63 03/25/2019 2:35 PM CDT Functional Status Functional Status Response Date of Assess ment Is person deaf or have serious hearing difficult y? No 08/28/2017 Is person blind or have serious difficulty seein g? No 08/28/2017 Does person have serious dif ficulty walking/climbing stairs? No 08/28/2017 Does person have difficulty dressing/bathing? No 08/28/2017 Does person have difficulty doing errands alone? No 08/28/2017 Cognitive Status Response Date of Assessm ent Does person have difficulty concentrating/remembering/making decisions? No 08/28/2017 Plan of Treatment Not on file Advance Directives * Full Code (Latest Code Status on File) Date Activated Date Inactivated Comments 08/28/2017 6:29 AM 08/28/2017 3:20 PM Care Teams Gas Main Fitter Helper Relationship Specialty Start Date End Date Janie Chapman PA [address] [place] [address] [place] [phone] PCP - General Physician Dairy Scientist 03/11/19
--- OUTSIDE RECORDS SUMMARY | 2024-12-10 20:48 | XMS_ITS | Patient Health Summary ---
Author Organization [facility] Address [address] [place] [address] Care Team Providers Care Roller Name Role Phone Janie Chapman Primary Care Pr ovider Note from [facility],non-owned Affiliates and Associated Physician Practices is amultiple site organization consisting of ambulatory clinics and hospital sitesin [place], [place], [place] and [place]. This disclosure is being madepursuant to the Care Everywhere program and may not contain all information available regarding this patient. Last updated 18.[facility] Allergies No known active allergies Medications * Be aware that medications may not be up to date on this document. Alwaysverify current medications with the patient. * zaleplon (SONATA) 10 MG capsule(Started 08/28/2017) Take 1 capsule by mouth nightly as needed for Insomnia Reasons: Trouble Sleeping 1 refill remaining * melatonin 5 MG tablet(Started 08/28/2017) Take 3 tablets by mouth at bedtime Reasons: Trouble Sleeping * FLUoxetine HCl (PROZAC PO) Take 80 mg by mouth * LORAZEPAM PO Take 1 mg by mouth 2 times daily * lisdexamfetamine (VYVANSE) 60 MG capsule Take 70 mg by mouth once daily * Ergocalciferol (VITAMIN D2 PO) Take 50,000 Units by mouth every 7 days * cyanocobalamin (VITAMIN B-12) 1000 MCG tablet Take 1,000 mcg by mouth once daily * lurasidone (LATUDA) 20 MG tablet Take 20 mg by mouth daily with breakfast * Levonorgestrel (MIRENA, 52 MG, IU) Active Problems Problem Noted Date Diagnosed Date [...] Mass Index 21.63 03/25/2019 2:35 PM CDT Procedures * STREP A SCREEN - POINT OF CARE (AMB) STL(Performed 03/25/2019) Performed for Acute pharyngitis, unspecified etiology * INFLUENZA A+B - POINT OF CARE (AMB)(Performed 02/12/2018) Performed for Nasopharyngitis acute * CULTURE THROAT(Performed 01/23/2018) Performed for Acute pharyngitis, unspecified etiology * STREP A SCREEN - POINT OF CARE (AMB) STL(Performed 01/23/2018) Performed for Acute pharyngitis, unspecified etiology * STREP A SCREEN - POINT OF CARE (AMB) STL(Performed 01/21/2018) Performed for Acute pharyngitis, unspecified etiology * INFLUENZA A+B - POINT OF CARE (AMB)(Performed 01/21/2018) Performed for Acute pharyngitis, unspecified etiology * CULTURE THROAT(Performed 10/29/2017) Performed for Acute pharyngitis, unspecified etiology, Lymphadenopathy, submandibular * STREP A SCREEN - POINT OF CARE (AMB) STL(Performed 10/29/2017) Performed for Acute pharyngitis, unspecified etiology, Lymphadenopathy, submandibular * HCG URINE QUALITATIVE - POINT OF CARE(Performed 08/28/2017) * URINE DRUG SCREEN IMMUNOASSAY(Performed 08/28/2017) * URINE MICROSCOPIC ONLY REFLEX TO CULTURE(Performed 08/28/2017) * URINALYSIS REFLEX MICROSCOPIC REFLEX CULTURE(Performed 08/28/2017) * CULTURE URINE(Performed 08/28/2017) * COMPREHENSIVE METABOLIC PANEL(Performed 08/27/2017) * CBC W AUTO DIFFERENTIAL(Performed 08/27/2017) * DERMATOPATHOLOGY(Performed 03/02/2014) Results * STREP A SCREEN (03/25/2019 2:45 PM CDT) Only the most recent of4 resultswithin the time period is included. Strep A Rapid POCT Negative Negative Strep A Internal Control Present Lot # [id number] Expiration Date 09 17 2020 Throat ENTIRE THROAT (SURFACE REGION OF NECK) / Unknown 03/25/2019 2:45 PM CDT Christopher De León SCIENTIFIC ADVISOR-[employer]D TEACHER LAB - POINT OF CA RE ORDERABLES * INFLUENZA A+B - POINT OF CARE (AMB) (02/12/2018 9:28 AM CDT) Only the most recent of2 resultswithin the time period is included. Influenza A Antigen Rapid Negative Negative Influenza B Antigen Rapid Negative Negative Influenza Internal Control present NEGATIVE - POSITIVE Influenza Lot Number [id number] Influenza Expiration Date 12/24/2019 Other NASOPHARYNGEAL SWAB / Unknown 02/12/2018 9:28 AM CDT Mariam Goff SCIENTIFIC ADVISOR-SLD TEACHER LAB - POIN T OF CARE ORDERABLES * CULTURE THROAT (01/23/2018 3:05 PM OPENER [employer]) Only the most recent of2 resultswithin the time period is included. Culture [facility] Comment: ??CULTURE, THROAT ?MICRO NUMBER: ?[id number] ??TEST STATUS: ? FINAL ??SPECIMEN SOURCE: ?? THROAT ??SPECIMEN QUALITY: ??ADEQUATE ??RESULT: ?No oropharyngeal pathogens recovered. Test Performed at: [facility] ??[id number] DEMETRIA GARCIA MD Microbiology ENTIRE THROAT (SURFACE REGION OF NECK) / Unknown 01/23/2018 3:05 PM [employer] 01/24/2018 1:29 AM [employer] Mike Jacobs SCIENTIFIC ADVISOR-SLD TEACHER LAB - MICRO BIOLOGY ORDERABLES Performing Organization Address [facility]/ZIP Co de Phone Number [facility] [address] [place] [phone] * HCG URINE QUALITATIVE - POINT OF CARE (IP) (08/28/2017 12:50 AM CDT) HCG Qual Urine Negative Negative [facility] POCT TEST[facility] QC Verified Yes Yes [facility] POC T TESTING Urine URINE / Unknown 08/28/2017 1 2:50 AM CDT Jhonny Sharma MD LAB - POINT OF CARE ORDERABLES Performing Organization Address [facility] Co de Phone Number [facility] POCT TEST[facility] [address] [phone] * (ABNORMAL) DRUG SCREEN TOX URINE PANEL (08/28/2017 12:07 AM CDT) Amphetamines Screen Urine Not Detected Not Detected 08/28/2017 12:30 AM CDT [facility] Barbiturates Screen Urine Not Detected Not Detected 08/28/2017 12:30 AM CDT [facility] Benzodiazepines Screen Urine Detected(A) Not Detected 08/28/2017 12:30 AM CDT [facility] Cannabinoids Screen Urine Detected(A) Not Detected 08/28/2017 12:30 AM CDT [facility] Cocaine Screen Urine Not Detected Not Detected 08/28/2017 12:30 AM CDT [facility] Methadone Screen Urine Not Detected Not Detected 08/28/2017 12:30 AM CDT [facility] Opiate Screen Urine Not Detected Not Detected 08/28/2017 12:30 AM CDT [facility] Phencyclidine Screen Urine Not Detected Not Detected 08/28/2017 12:30 AM CDT [facility] Urine URINE / Unknown Collection / Unknown 08/28/2017 12:07 AM CDT 08/28/2017 12:19 AM CDT Narrative [facility] - 08/28/2017 12:30 AM CDT This drug screen is designed for MEDICAL purposes only. It is not to be used for legal purposes, including but not limited to worker's comp, police investigations, occupational issues, child custody, etc. ??Any positive result is only presumptive and must be confirmed with a separate confirmatory test ordered by the physician. Drug Screening Test Cutoff Values: AMPHETAMINES ?1000 ng/mL BARBITURATES ? 200 ng/mL BENZODIAZEPINES ??200 ng/mL CANNABINOIDS(THC) 50 ng/mL COCAINE ?300 ng/mL METHADONE ?300 ng/mL OPIATES ?300 ng/mL PHENCYCLIDINE(PCP)25 ng/mL Jamie Rawls MD LAB - URINE CHEMISTR Y ORDERABLES [facility] [address] [place], [place] [id number] * (ABNORMAL) URINALYSIS MICROSCOPIC ONLY W/REFLEX CULTURE (08/28/2017 12:00 AM CDT) WBC UA 10-20(A) 0-2, 2-5 # /hpf 08/28/2017 12:34 AM T [facility] Bacteria UA 3+(A) None Seen 08/28/2017 12:34 AM T [facility] Epithelial Cell UA 5-10(A) 0-2, 2-5 # /hpf 08/28/2017 12:34 AM T [facility] Mucus UA 2+ 08/28/2017 12:34 AM CDT [facility] Reflex Status Culture to follow 08/28/2017 12:34 AM T [facility] Urine URINE SPECIMEN OBTAINED BY CLEAN CATCH PROCEDURE / Unknown Collection / Unknown 08/28/2017 12:00 AM CDT 08/28/2017 12:14 AM CDT Jhonny Sharma MD LAB - URINALYSIS ORD ERABLES [facility] [address] [place], [place] [id number] * (ABNORMAL) URINALYSIS ROUTINE W/REFLEX TO CULTURE (08/28/2017 12:00 AM CDT) Color UA Yellow Straw, Yellow, Dark Yellow 08/28/2017 12:21 AM [facility] Clarity UA Cloudy 08/28/2017 12:21 AM [facility] Specific Maurice UA 1.020 1.005 - 1.030 08/28/2017 12:21 AM [facility] pH UA 6.0 5.0 - 8.0 pH 08/28/2017 12:21 AM [facility] Protein UA 2+(A) Negative 08/28/2017 12:21 AM [facility] Blood UA 1+(A) Negative 08/28/2017 12:21 AM [facility] Leukocyte UA 1+(A) Negative 08/28/2017 12:21 AM [facility] Nitrite UA Negative Negative 08/28/2017 12:21 AM [facility] Glucose UA Negative Negative 08/28/2017 12:21 AM [facility] Ketone UA 2+(A) Negative 08/28/2017 12:21 AM [facility] Bilirubin UA Negative Negative 08/28/2017 12:21 AM [facility] Urobilinogen UA 0.2 0.1 - 1.0 EU/dL 08/28/2017 12:21 AM [facility] WBC UA Auto >100(A) 0-2, 2-5 # /hpf 08/28/2017 12:21 AM [facility] RBC UA Auto Reflex to manual(A) 0-2, 2-5 # /hpf 08/28/2017 12:21 AM [facility] Epithelial Cell UA Auto 5-10(A) 0-2, 2-5 # /hpf 08/28/2017 12:21 AM [facility] Hyaline Casts UA Auto Reflex to manual(A) 0 - 2 #/lpf 08/28/2017 12:21 AM [facility] Reflex Status Culture to follow 08/28/2017 12:21 AM CDT [facility] Urine URINE SPECIMEN OBTAINED BY CLEAN CATCH PROCEDURE / Unknown Collection / Unknown 08/28/2017 12:00 AM CDT 08/28/2017 12:14 AM CDT Jhonny Sharma MD LAB - URINALYSIS ORD ERABLES Performing Organization Address City/[facility]/ZIP Co de Phone Number [facility] [address] [place] [address] * CULTURE URINE (08/28/2017 12:00 AM CDT) Culture Urine <10,000 CFU/mL urogenital camilo JAILENE 08/29/2017 12:11 PM CDT [facility] Urine URINE SPECIMEN OBTAINED BY CLEAN CATCH PROCEDURE / Unknown Collection / Unknown 08/28/2017 12:00 AM CDT 08/28/2017 12:14 AM CDT Jhonny Sharma MD LAB - MICROBIOLOGY O RDERABLES [facility] MICROBIOLOGY [address] [phone] * (ABNORMAL) CBC W AUTO DIFFERENTIAL (08/27/2017 8:48 PM CDT) WBC 9.1 4.4 - 10.7 x10E9/L 08/27/2017 9:15 PM CDT [facility] WBC Corrected x10E9/L 08/27/2017 9:15 PM CDT [facility] RBC 4.69 3.80 - 5.20 x10E12/L 08/27/2017 9:15 PM CDT [facility] Hemoglobin 14.4 12.0 - 15.6 gm/dL 08/27/2017 9:15 PM CDT [facility] Hematocrit 43.5 35.9 - 45.5 % 08/27/2017 9:15 PM CDT [facility] MCV 92.8 80.7 - 98.3 fl 08/27/2017 9:15 PM CDT [facility] MCH 30.7 26.7 - 34.0 pg 08/27/2017 9:15 PM CDT [facility] MCHC 33.1 30.8 - 35.9 gm/dL 08/27/2017 9:15 PM CDT [facility] Platelet Count 256 153 - 416 x10E9/L 08/27/2017 [facility] RDW-CV 13.8 12.1 - 14.9 % 08/27/2017 9:15 PM [facility] MPV 8.6(L) 9.4 - 12.9 fl 08/27/2017 9:15 PM [facility] Neutrophils % 69.0 44.0 - 73.0 % 08/27/2017 9:15 PM [facility] Lymphocytes % 23.2 20.0 - 43.0 % 08/27/2017 9:15 PM [facility] Monocytes % 6.5 5.0 - 13.0 % 08/27/2017 9:15 PM [facility] Eosinophils % 0.9 0.0 - 6.0 % 08/27/2017 9:15 PM [facility] Basophils % 0.2 0.0 - 2.0 % 08/27/2017 9:15 PM [facility] Immature Granulocytes 0.2 0 - 1 % 08/27/2017 9:15 PM [facility] Neutrophil Absolute 6.31 2.01 - 7.14 x10E9/L 08/27/2017 9:15 PM [facility] Lymphocytes Absolute 2.12 1.07 - 3.94 x10E9/L 08/27/2017 9:15 PM [facility] Monocytes Absolute 0.59 0.26 - 1.07 x10E9/L 08/27/2017 9:15 PM [facility] Eosinophils Absolute 0.08 0 - 0.47 x10E9/L 08/27/2017 9:15 PM [facility] Basophils Absolute 0.02 0 - 0.08 x10E9/L 08/27/2017 9:15 PM [facility] Immature Granulocytes Absolute 0.02 0.00 - 0.06 x10E9/L 08/27/2017 9:15 PM [facility] nRBC Auto 0 /100 WBC 08/27/2017 9:15 PM [facility] Blood BLOOD SPECIMEN / Unknown Venipuncture / Unknown 08/27/2017 8:48 PM CDT 08/27/2017 9:13 PM CDT Jhonny Sharma MD LAB - HEMATOLOGY ORD ERABLES [facility] [address] [place] [address] * (ABNORMAL) COMPREHENSIVE METABOLIC PANEL (08/27/2017 8:48 PM CDT) [facility] Glucose 87 74 - 106 mg/dL 08/27/2017 9:31 PM CDT [facility] Sodium 138 136 - 145 mmol/L 08/27/2017 9:31 PM CDT [facility] Potassium 4.2 3.5 - 5.1 mmol/L 08/27/2017 9:31 PM CDT [facility] Chloride 106 98 - 107 mmol/L 08/27/2017 9:31 PM CDT [facility] CO2 25 22 - 31 mmol/L 08/27/2017 9:31 PM CDT [facility] Calcium 9.3 8.5 - 10.1 mg/dL 08/27/2017 9:31 PM CDT [facility] Anion Gap 7(L) 8 - 16 mmol/L 08/27/2017 9:31 PM CDT [facility] BUN 7 7 - 21 mg/dL 08/27/2017 9:31 PM CDT [facility] Creatinine 0.81 0.50 - 1.30 mg/dL 08/27/2017 9:31 PM CDT [facility] Alkaline Phosphatase 69 38 - 126 U/L 08/27/2017 9:31 PM CDT [facility] ALT 30 13 - 61 U/L 08/27/2017 9:31 PM CDT [facility] AST 20 5 - 40 U/L 08/27/2017 9:31 PM CDT [facility] Protein Total 7.9 6.4 - 8.2 gm/dL 08/27/2017 9:31 PM CDT [facility] Albumin 4.0 3.4 - 5.0 gm/dL 08/27/2017 9:31 PM CDT [facility] Bilirubin Total 0.5 0.2 - 1.0 mg/dL 08/27/2017 9:31 PM CDT [facility] eGFR by MDRD >60 >60 mL/min/1.7 3m2 08/27/2017 9:31 PM CDT [facility] eGFR by MDRD >60 >60 mL/min/1.7 3m2 08/27/2017 9:31 PM CDT [facility] Blood BLOOD SPECIMEN / Unknown Venipuncture / Unknown 08/27/2017 8:48 PM CDT 08/27/2017 9:13 PM CDT Jhonny Sharma MD LAB - CHEMISTRY JESÚS RHODES Performing Organization Address [facility] Co de Phone Number [facility] [address] [place] [address] * PATHOLOGY TISSUE FOR DERMATOLOGY (03/02/2014 12:00 AM CDT) Result CASE: [id number] PATIENT: CAYLA BILLS PATHOLOGIC DIAGNOSIS: R upper back: LENTIGINOUS MELANOCYTIC NEVUS, JUNCTIONAL TYPE, 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 GROSS DESCRIPTION: Received is one formalin filled container labeled with the patient's name and designated right upper back. The specimen consists of a shave measuring 5x4x1 mm. Jar 0. MICROSCOPIC DESCRIPTION: This is a junctional nevus. There is pigmented parakeratosis present. There is architectural disorder characterized by a lentiginous proliferation of melanocytes between irregular nests of cells along the dermal-epiderma l junction. There is underlying fibroplasia of the papillary dermis and a brisk inflammatory cell infiltrate. (Junctional Ky's Nevus or Junctional Dysplastic Nevus) Electronically signed out by Manjula Marks M.D., PhD. 03/08/2014 1:32:18PM [facility] Comment: Performed at: Dermatopathology Laboratory [facility] - Department of Dermatology [address] [place] [address] 5th [place] [address] Phone number: [phone] FAX: [phone] 03/02/2014 03/04/2014 Umu Ann MD LAB - PATHOLOGY/CYT OLOGY ORDERABLES [facility] [address] [place] [address], [facility] [phone] Care Teams Roller Relationship Specialty Start Date End Date Janie Chapman PA [address] [place] [address] PCP - General Physician Pot Lining Supervisor 03/11/19
--- OUTSIDE RECORDS SUMMARY | 2024-12-10 20:49 | XMS_ITS ---
Author Organization [facility] [employer] Address [address] [place] [address] Care Team Providers Care Manufacture Specialist Name Role Phone Naveen Holly Unavailable [phone] Allergies No Known Allergies Results Component Value Reference Range Notes UDT Reviewed date:12/05/2024 06:39:25 PM Interpretation: Performing Lab: Notes/Report: 0 THC P 0 - 50 ng/ml Cocaine N 0 - 300 ng/ml Amphetamine P 0 - 1000 ng/ml Buprenorphine (BUP) N 0 - 10 ng/ml Secobarbital (Bar) N 0 - 300 ng/ml Oxazepam (BZO) N 0 - 300 ng/ml 0-xbqahocbio-3,6-xwyqmgyc-5,3-diphenylpyrrolidine (FANW P) N 0 - 300 ng/ml Methamphetamine (MET) N 0 - 1000 ng/ml Methylenedioxymethamphetamine (MDMA) N 0 - 500 ng/ml Morphine (MOP 300/ULO0919) N 0 - 300 ng/ml Methadone (MTD) N 0 - 300 ng/ml Phencyclidine (PCP) N 0 - 25 ng/ml Propoxyphene (PPX) N 0 - 300 ng/ml Nortriptyline (TCA) N 0 - 1000 ng/ml Oxycodone N 0 - 300 ng/ml REASON FOR VISIT Established follow up visit, MIPS BP NORMAL, Depression screening positive, UDT Visit, UDT done Medications Medication SIG (Take, Route, Frequency, Duration) Notes Start Date End Date Status FLUoxetine HCl 20 MG 2 capsule Orally Once a day for 90 days dose reduce Active Lisdexamfetamine Dimesylate 60 MG 1 capsule in the morning by mouth Once a day for 30 days 12/02/2024 Active buPROPion HCl ER (XL) 150 MG Oral 02/27/2024 Not-Taking Zaleplon 10 MG 1 capsule every night Orally Once a day for 30 days 12/02/2024 Active QUEtiapine Fumarate 100 MG 1 tablet Oral Once a day for 30 days Active Propranolol HCl 10 MG Oral 02/27/2024 Active Esketamine HCl (84 MG Dose) 28 MG/DEVICE Nasal 02/27/2024 Not-Takin g QUEtiapine Fumarate ER 150 MG 1 tablet in the evening Orally Once a day for 90 days 12/02/2024 Active Belsomra 20 MG TAKE 1 TABLET BY MOUTH DAILY AT BEDTIME Oral for 30 Days Active Cyanocobalamin 1000 MCG/ML Injection 02/27/2024 Active Ergocalciferol 1.25 MG (40812 UT) Oral 02/27/2024 Active MIRENA 21 MCG/24 HR (UP TO 8 YEARS) 52 MG INTRAUTERINE DEVICE *Reorder from [employer] for eRx and Interaction Alerts* 02/27/2024 Active Auvelity 45-105 MG 1 tablet in the morning Orally twice a day for 90 days Active Social History Tobacco Use: Social History Observation Description Date Details (start date - stop date) Never Smoker NA - NA Sex Assigned At : Social History Observation Description Sex Assigned At Female Tobacco Control (Standard) Question Answer Notes Tobacco use: Nonsmoker AUDIT-C (Standard) Question Answer Notes Did you have a drink contain ing alcohol in the past year? Yes How often did you have six o r more drinks on one occasion in the past year? 2 to 4 times a month (2 points) How many drinks did you have on a typical day when you were drinking in the past year? 3 or 4 drinks (1 point) How often did you have a dri nk containing alcohol in the past year? 2 to 4 times a month (2 points) Vital Signs Blood pressure systolic 115 mm Hg 12/02/19 25 Blood pressure diastolic 82 mm Hg 025 Heart Rate 93 /min 12/02/2024 Height 65.00 in 12/02/2024 Weight 160.4 lbs 12/02/2024 BMI 26.69 kg/m2 12/02/2024 Height-cm 165.10 cm 12/02/2024 Weight-kg 72.76 kg 12/02/2024 Encounters Encounter Location Date Provider [facility] [address] [place] [address] 12/02/2024 Naveen Holly Major depressive disorder, recurrent severe without psychotic features F33.2 ; Primary insomnia F51.01 ; Body mass index (BMI) 30.0-30.9, adult Z68.30 and ADHD (attention deficit hyperactivity disorder), combined type F90.2 Assessments Encounter Date Diagnosis (ICD Code) Assessment Notes Treatment Notes Treatment Clinical Notes Section Notes 12/02/2024 Major depressive disorder, recurrent severe without psychotic features (ICD-10 - F33.2) Major Depressive Disorder - Assessment: Patient reports moderate depression with no improvement, feeling blah and not better or worse. - Plan: - Continue Fluoxetine 40 mg daily, 90-day supply sent to [facility]. - Consider ketamine infusion or IM therapy; patient to research VNS before proceeding. - Referral for ECT can be sent to [facility] if needed. - Patient to consider Auvelity for depression and anxiety. Insomnia - Assessment: Patient reports sleep issues, likely due to not having Belsomra. Better sleep initiation with Xalatan and Sonata. - Plan: - Discontinue Belsomra. - Prescribe quetiapine ER, starting at 100 mg, can increase to 150 mg if needed. Send to [facility]. - Patient to take quetiapine ER around 4 hours before bedtime. Anxiety - Assessment: Patient reports persistent anxiety after stopping lorazepam. - Plan: - Consider hydroxyzine for anxiety, with caution due to potential sedation. - Continue quetiapine for anxiety management, adjusting dosage as needed. - Patient does not want to restart lorazepam due to addiction potential. ADHD - Assessment: Patient is still taking Vyvanse, with occasional breaks on Sundays. Reports difficulty functioning without Vyvanse. - Plan: - Refill Vyvanse prescription, send to local pharmacy. - Prescribe generic version of Vyvanse if possible. Medication Management - Plan: - Fluoxetine and Auvelity to be sent to [facility] for 90-day supply. - Vyvanse and Xalatan to be sent to local pharmacy. - Patient to request refills online through the portal. Follow-up - Plan: - Schedule a follow-up appointment in 2 months. - Patient to print summary from the portal if needed for ketamine infusion consideration. - Patient informed about [facility] in [place] for ketamine treatment. Insurance - Assessment: Patient has new insurance ([employer]) as of November 18. 12/02/2024 Primary insomnia (ICD-10 - F51.01) Insomnia: Care Instructions material was published Major Depressive Disorder - Assessment: Patient reports moderate depression with no improvement, feeling blah and not better or worse. - Plan: - Continue Fluoxetine 40 mg daily, 90-day supply sent to [facility]. - Consider ketamine infusion or IM therapy; patient to research VNS before proceeding. - [facility]. - Patient to consider Auvelity for depression and anxiety. Insomnia - Assessment: Patient reports sleep issues, likely due to not having Belsomra. Better sleep initiation with Xalatan and Sonata. - Plan: - Discontinue Belsomra. - Prescribe quetiapine ER, starting at 100 mg, can increase to 150 mg if needed. Send to [facility]. - Patient to take quetiapine ER around 4 hours before bedtime. Anxiety - Assessment: Patient reports persistent anxiety after stopping lorazepam. - Plan: - Consider hydroxyzine for anxiety, with caution due to potential sedation. - Continue quetiapine for anxiety management, adjusting dosage as needed. - Patient does not want to restart lorazepam due to addiction potential. ADHD - Assessment: Patient is still taking Vyvanse, with occasional breaks on Sundays. Reports difficulty functioning without Vyvanse. - Plan: - Refill Vyvanse prescription, send to local pharmacy. - Prescribe generic version of Vyvanse if possible. Medication Management - Plan: - Fluoxetine and Auvelity to be sent to [facility] for [facility]-day supply. - Vyvanse and Xalatan to be sent to local pharmacy. - Patient to request refills online through the portal. Follow-up - Plan: - Schedule a follow-up appointment in 2 months. - Patient to print summary from the portal if needed for ketamine infusion consideration. - Patient informed about [facility] in [place] for ketamine treatment. Insurance - Assessment: Patient has new insurance ([employer]) as of November 18. 12/02/2024 Body mass index (BMI) 30.0-30.9, adult (ICD-10 - Z68.30) Major Depressive Disorder - Assessment: Patient reports moderate depression with no improvement, feeling blah and not better or worse. - Plan: - Continue Fluoxetine 40 mg daily, 90-day supply sent to [facility]. - Consider ketamine infusion or IM therapy; patient to research VNS before proceeding. - [facility]. - Patient to consider Auvelity for depression and anxiety. Insomnia - Assessment: Patient reports sleep issues, likely due to not having Belsomra. Better sleep initiation with Xalatan and Sonata. - Plan: - Discontinue Belsomra. - Prescribe quetiapine ER, starting at 100 mg, can increase to 150 mg if needed. Send to [facility]. - Patient to take quetiapine ER around 4 hours before bedtime. Anxiety - Assessment: Patient reports persistent anxiety after stopping lorazepam. - Plan: - Consider hydroxyzine for anxiety, with caution due to potential sedation. - Continue quetiapine for anxiety management, adjusting dosage as needed. - Patient does not want to restart lorazepam due to addiction potential. ADHD - Assessment: Patient is still taking Vyvanse, with occasional breaks on Sundays. Reports difficulty functioning without Vyvanse. - Plan: - Refill Vyvanse prescription, send to local pharmacy. - Prescribe generic version of Vyvanse if possible. Medication Management - Plan: - Fluoxetine and Auvelity to be sent to [facility] for 90-day supply. - Vyvanse and Xalatan to be sent to local pharmacy. - Patient to request refills online through the portal. Follow-up - Plan: - Schedule a follow-up appointment in 2 months. - Patient to print summary from the portal if needed for ketamine infusion consideration. - Patient informed about [facility] infusion center in [place] for ketamine treatment. Insurance - Assessment: Patient has new insurance ([employer]) as of November 18. 12/02/2024 ADHD (attention deficit hyperactivity disorder), combined type (ICD-10 - F90.2) Major Depressive Disorder - Assessment: Patient reports moderate depression with no improvement, feeling blah and not better or worse. - Plan: - Continue Fluoxetine 40 mg daily, 90-day supply sent to [facility]. - Consider ketamine infusion or IM therapy; patient to research VNS before proceeding. - Referral for ECT can be sent to [facility] if needed. - Patient to consider Auvelity for depression and anxiety. Insomnia - Assessment: Patient reports sleep issues, likely due to not having Belsomra. Better sleep initiation with Xalatan and Sonata. - Plan: - Discontinue Belsomra. - Prescribe quetiapine ER, starting at 100 mg, can increase to 150 mg if needed. Send to [facility]. - Patient to take quetiapine ER around 4 hours before bedtime. Anxiety - Assessment: Patient reports persistent anxiety after stopping lorazepam. - Plan: - Consider hydroxyzine for anxiety, with caution due to potential sedation. - Continue quetiapine for anxiety management, adjusting dosage as needed. - Patient does not want to restart lorazepam due to addiction potential. ADHD - Assessment: Patient is still taking Vyvanse, with occasional breaks on Sundays. Reports difficulty functioning without Vyvanse. - Plan: - Refill Vyvanse prescription, send to local pharmacy. - Prescribe generic version of Vyvanse if possible. Medication Management - Plan: - Fluoxetine and Auvelity to be sent to [facility] for 90-day supply. - Vyvanse and Xalatan to be sent to local pharmacy. - Patient to request refills online through the portal. Follow-up - Plan: - Schedule a follow-up appointment in 2 months. - Patient to print summary from the portal if needed for ketamine infusion consideration. - Patient informed about [facility] infusion center in [place] for ketamine treatment. Insurance - Assessment: Patient has new insurance ([employer]) as of November 18. Plan Of Treatment Medication Medication Name Sig Start Date Stop Date Notes FLUoxetine HCl 20 MG 2 capsule Orally On ce a day for 90 days Lisdexamfetamine Dimesylate 60 MG 1 caps ule in the morning by mouth Once a day for 30 days 12/02/2024 Zaleplon 10 MG 1 capsule every nigh t Orally Once a day for 30 days 12/02/2024 01/31/2025 QUEtiapine Fumarate ER 150 MG 1 tablet i n the evening Orally Once a day for 90 days 12/02/2024 Auvelity 45-105 MG 1 tablet in the morn ing Orally twice a day for 90 days Treatment Notes Assessment Notes Primary insomnia Insomnia: Care Instr uctions material was published Next Appt Details Follow Up: 2 Months, Reason: Provider Name:Naveen Miranda Holly , 01/28/2025 01:15:00 PM, [address], [facility] [address], [place], [address], Progress Notes * FRANCESCA SANDERSOB: [birth year] (38 yo F)Acc No.[id number]:12/02/2024 Patient:?ELADIO SANDERS Provider:?NAVEEN HOLLY MD :[id number]???Age:38 Y???Sex:Female D ate:12/02/2024 Address:[address] [place] [address] , [id number] Subjective: * Chief Complaints: * ???Established follow up vis itMIPS BP NORMALDepression screening positiveUDT VisitUDT done * HPI: ???Depression Screening:? The note is transcribed using speech recognition software. It is a reflection of a visit with the patient. It might have some inaccuracy, including medication names and transcribing errors, though efforts have been made to correct them. Chief Complaint: Moderate depression with no improvement The patient reports moderate depression with no improvement since her last visit on September 25. She received Spravato on September 15. The patient experienced difficulty during the holidays due to separation from her child. She has been experiencing sleep issues, which she attributes to not having Belsomra. A refill was requested but not filled. The patient reports ongoing anxiety after discontinuing lorazepam. She notes that quetiapine helps but causes sedation. She continues to take Vyvanse, attempting to abstain on Sundays when inactive, which results in significant somnolence. The patient mentions that Xalatan with Sonata was most effective for her sleep initiation difficulties, while Belsomra was less efficacious. She is currently taking fluoxetine 40 mg daily. Mental Health: The patient reports feeling blah and that her mood is still moderately depressed without improvement. She denies feeling worse but also doesn't feel better, describing her state as in between. The patient expresses relief that the holidays are over, as they were particularly difficult without her child. She mentions hating the current weather. Stressors: The patient states being very busy with work at the end of the year. She reports difficulty getting up and going sometimes, making it impossible to attend appointments. Medical History: - Depression - Anxiety - Sleep issues Medication Management: Current and Past Medications: - Spravato (received on September 15) - Vyvanse (currently taking, tries not to take on Sundays) - Fluoxetine 40 mg daily - Lorazepam (stopped) - Quetiapine (currently taking, helps but is sedating) Social History: - Occupation: employed, busy with work - Living situation: lives without child - Stress levels: holidays were tough without child, moderately depressed mood Review of Systems: - Psychiatric: Moderately depressed mood, anxiety - Sleep: Sleep issues - General: Feels busy with work, tough holidays. ?ALF-7 (2018 Edition)?Feeling nervous, anxious, or on edge?Several days,?Not being able to stop or control worrying?Several days,?Worrying too much about different things?Several days,?Trouble relaxing?More than half the days,?Being so restless that it is hard to sit still?Not at all,?Becoming easily annoyed or irritable?Several days,?Feeling afraid as if something awful might happen?Several days.?Amite-Suicide Severity Rating Scale:?Suicide Risk (CSRS-screener)?in the past one month Have you wished you were or wished you could go to sleep and not wake up??No,?in the past one month Have you actually had any thoughts of killing yourself??No,?Have you ever done anything, started to do anything, or prepared to do anything to end your life??No.?Depression screening:?PHQ-9?Little interest or pleasure in doing things?Nearly every day,?Feeling down, depressed, or hopeless?More than half the days,?Trouble falling or staying asleep, or sleeping too much?Nearly every day,?Feeling tired or having little energy?Nearly every day,?Poor appetite or overeating?Several days,?Feeling bad about yourself or that you are a failure, or have let yourself or your family down?Several days,?Trouble concentrating on things, such as reading the newspaper or watching television?Not at all,?Moving or speaking so slowly that other people could have noticed; or the opposite, being so fidgety or restless that you have been moving around a lot more than usual?Not at all,?Thoughts that you would be better off or of hurting yourself in some way?Not at all,?Total Score?13,?Interpretation?Moderate Depression.?Intervention?Depression Screening Findings?Positve,?Follow-Up for Depression?Mental health treatment assessment, Patient follow-up to return when and if necessary,?Suicide Risk Assessment Performed? ,?Additional Evaluation for Depression?Psychiatric interview and evaluation,?Name of the standardized tool used for adult depression screening:?Patient Health Questionnaire (PHQ-9).?History of Presenting Problem:? Pt was seen today and Urine drug screen was done. * ROS:?Performance Met:?Normal blood pressure reading documented, follow-up not required?([id number]). * Medical History:? * Surgical History:? * Hospitalization/Major Diagno stic Procedure:? * Social History:?Tobacco Use:?Tobacco Control (Standard)?Tobacco use:?Nonsmoker.?Migrated Social History:?Migrated Social History: Alcohol Intake: Occasional 02/26/2023,Tobacco Years: Never smoker 02/26/2023. ???Drug/Alcohol:?Drugs?Have you used drugs other than those for medical reasons in the past 12 months??Yes,?Methamphetamine??No,?Crack??No,?LSD??No,?Ecstacy??No,?Prescription opiates??No,?Marijuana??Yes,?Ketamine??No,?PCP? No,?Is there a minor (18 years or younger) at risk at home??No,?Are you still using??No.?AUDIT-C (Standard)?Did you have a drink containing alcohol in the past year? Yes,?How often did you have six or more drinks on one occasion in the past year??2 to 4 times a month (2 points),?How many drinks did you have on a typical day when you were drinking in the past year??3 or 4 drinks (1 point),?How often did you have a drink containing alcohol in the past year??2 to 4 times a month (2 points).?Miscellaneous:?Occupation: HR. Safety issues?Are there any firearms in the house??No.?Advance Care Planning?Are you your own decision-maker?Yes,?Do you have Power of Filtration Supervisor for Health or Medical??No.?Social History:?Household?Marital Status:?Single,?Number of Adults in household:?1,?Number of Children in Household:?1,?Level of Education:?Finished College.? * Medications:?TakingFLUoxetin e HCl 20 MG Capsule 1 capsule Orally Once a day dose reduceMIRENA 21 MCG/24 HR (UP TO 8 YEARS) 52 MG INTRAUTERINE DEVICE , Notes to Pharmacist: *Reorder from [employer] for eRx and Interaction Alerts*Cyanocobalamin 1000 MCG/ML Solution Injection Ergocalciferol 1.25 MG (39446 UT) Capsule Oral Propranolol HCl 10 MG Tablet Oral Auvelity 45-105 MG Tablet Extended Release 1 tablet in the morning Orally twice a day QUEtiapine Fumarate 100 MG Tablet 1 tablet Oral Once a day Lisdexamfetamine Dimesylate 60 MG Capsule 1 capsule in the morning by mouth Once a day Belsomra 20 MG Tablet TAKE 1 TABLET BY MOUTH DAILY AT BEDTIME Oral Taking FLUoxetine HCl 20 MG Capsule 1 capsule Orally Once a day dose reduceTaking MIRENA 21 MCG/24 HR (UP TO 8 YEARS) 52 MG INTRAUTERINE DEVICE , Notes to Pharmacist: *Reorder from [employer] for eRx and Interaction Alerts*Taking Cyanocobalamin 1000 MCG/ML Solution Injection Taking Ergocalciferol 1.25 MG (12559 UT) Capsule Oral Taking Propranolol HCl 10 MG Tablet Oral Taking Auvelity 45-105 MG Tablet Extended Release 1 tablet in the morning Orally twice a day Taking QUEtiapine Fumarate 100 MG Tablet 1 tablet Oral Once a day Taking Lisdexamfetamine Dimesylate 60 MG Capsule 1 capsule in the morning by mouth Once a day Taking Belsomra 20 MG Tablet TAKE 1 TABLET BY MOUTH DAILY AT BEDTIME Oral Not-TakingEsketamine HCl (84 MG Dose) 28 MG/DEVICE Solution Therapy Pack Nasal buPROPion HCl ER (XL) 150 MG Tablet Extended Release 24 Hour Oral Not-Taking Esketamine HCl (84 MG Dose) 28 MG/DEVICE Solution Therapy Pack Nasal Not-Taking buPROPion HCl ER (XL) 150 MG Tablet Extended Release 24 Hour Oral DiscontinuedSpravato (84 MG Dose) 28 MG/DEVICE Solution Therapy Pack 3 sprays in each nostril Nasally once a week Medication List reviewed and reconciled with the patientDiscontinued Spravato (84 MG Dose) 28 MG/DEVICE Solution Therapy Pack 3 sprays in each nostril Nasally once a week Medication List reviewed and reconciled with the patient * Allergies:?N.K.D.A.no[Allerg ies Verified] Objective: * Vitals:?BP:115/82mm Hg, HR:9 3/min, Wt:160.4lbs, Wt-k.76 kg, Ht: 65.00 in, Ht-cm: 165.10 cm, BMI:26.69Index, Body Surface Area: 1.82. * Examination: ???General Examination: ???Mental Status Examination: Patient reports moderate depression with no improvement. Anxiety persists after discontinuation of lorazepam. Sleep disturbances noted, primarily due to unavailability of Belsomra. Patient is considering various treatment options including ketamine infusion, IM therapy, and ECT. Patient reports feeling blah and having difficulty getting up and going. Patient experienced increased difficulty during holidays without child. Patient reports being very busy with work. Vital Signs: review the notes for vitals Physical Examination: not performed during this visit Diagnostic Test Results and Labs: no recent test results or labs reported. Assessment: * Assessment: 1.?Major depressive disorder , recurrent severe without psychotic features - F33.2 (Primary)???2.?Primary insomnia - F51.01???3.?Body mass index (BMI) 30.0-30.9, adult - Z68.30???4.?ADHD (attention deficit hyperactivity disorder), combined type - F90.2??? Major Depressive Disorder - Assessment: Patient reports moderate depression with no improvement, feeling blah and not better or worse. - Plan: - Continue Fluoxetine 40 mg daily, 90-day supply sent to [facility]. - Consider ketamine infusion or IM therapy; patient to research VNS before proceeding. - Referral for ECT can be sent to [facility] if needed. - Patient to consider Auvelity for depression and anxiety. Insomnia - Assessment: Patient reports sleep issues, likely due to not having Belsomra. Better sleep initiation with Xalatan and Sonata. - Plan: - Discontinue Belsomra. - Prescribe quetiapine ER, starting at 100 mg, can increase to 150 mg if needed. Send to [facility]. - Patient to take quetiapine ER around 4 hours before bedtime. Anxiety - Assessment: Patient reports persistent anxiety after stopping lorazepam. - Plan: - Consider hydroxyzine for anxiety, with caution due to potential sedation. - Continue quetiapine for anxiety management, adjusting dosage as needed. - Patient does not want to restart lorazepam due to addiction potential. ADHD - Assessment: Patient is still taking Vyvanse, with occasional breaks on Sundays. Reports difficulty functioning without Vyvanse. - Plan: - Refill Vyvanse prescription, send to local pharmacy. - Prescribe generic version of Vyvanse if possible. Medication Management - Plan: - Fluoxetine and Auvelity to be sent to [facility] for 90-day supply. - Vyvanse and Xalatan to be sent to local pharmacy. - Patient to request refills online through the portal. Follow-up - Plan: - Schedule a follow-up appointment in 2 months. - Patient to print summary from the portal if needed for ketamine infusion consideration. - Patient informed about [facility] infusion center in [place] for ketamine treatment. Insurance - Assessment: Patient has new insurance ([employer]) as of November 18. Plan: * Treatment: 2.?Primary insomnia? Start Zaleplon Capsule, 10 MG, 1 capsule every night, Orally, Once a day, 30 days, 30 Capsule, Refills 1.?? Notes: Insomnia: Care Instructions material was published?? 3.?ADHD (attention deficit h yperactivity disorder), combined type? Refill Lisdexamfetamine Dimesylate Capsule, 60 MG, 1 capsule in the morning, by mouth, Once a day, 30 days, 30, Refills 0.?? * Labs:? * ?Lab: UDT (Collection Da te & Time - 12/02/2024) ? Value Reference Range ?THC P 0 - 50 ng/ml * ?Cocaine N 0 - 300 ng/ml * ?Amphetamine P 0 - 1000 ng /ml * ?Buprenorphine (BUP) N 0 - 10 ng/ml * ?Secobarbital (Bar) N 0 - 300 ng/ml * ?Oxazepam (BZO) N 0 - 300 ng/ml * ?8-ubxgxipwju-2,1-yxjqngzv-9,3-diphenylpyrrolidine (EDDP) N 0 - 300 ng/ml * ?Methamphetamine (MET) N 0 - 1000 ng/ml * ?Methylenedioxymethamphetamine (MDMA) N 0 - 500 ng/ml * ?Morphine (MOP 300/UMZ3607) N 0 - 300 ng/ml * ?Methadone (MTD) N 0 - 300 ng/ml * ?Phencyclidine (PCP) N 0 - 25 ng/ml * ?Propoxyphene (PPX) N 0 - 300 ng/ml * ?Nortriptyline (TCA) N 0 - 1000 ng/ml * ?Oxycodone N 0 - 300 ng/ml * Procedure Codes:?18344 DRUG TST PRSMV READ INSTRMNT ASSTD DIR OPT [id number] NORMAL BP READING DOC F/U NOT [id number] BEHAV ASSMT W/SCORE & DOCD/STAND INSTRUMENT * Follow Up:?2 Months * Billing Information: * Visit Code:? 95018 OFFICE OUTPATIENT VISIT 25 MINUTES DETAILED HISTORY AND EXAM/MODERATE MEDICAL DECISION MAKING. * Procedure Codes:? 34098 DRUG TST PRSMV READ INSTRMNT ASSTD DIR OPT OBS. G8783 NORMAL BP READING DOC F/U NOT RQR. 26767 BEHAV ASSMT W/SCORE & DOCD/STAND INSTRUMENT. * ASSOCIATE Sign off status: Completed true * Provider:?NAVEEN HOLLY MD Date:?12/02 Generated for Aron og/Ralfg/eTransmitting on:?12/10/2024 08:49 PM CARE ASSOCIATE History and Physical Notes * HPI (History of Present Illness) Category Sub-Category Detail Notes Category Not es History of Presenting Problem Pt was seen today and Urine drug screen was done Depression screening PHQ-9 Little inte rest or pleasure in doing things: Nearly every day Feeling down, depressed, or hopeless: Mo re than half the days Trouble falling or staying asleep, or sl eeping too much: Nearly every day Feeling tired or having little energy: N early every day Poor appetite or overeating: Several day s Feeling bad about yourself o r that you are a failure, or have let yourself or your family down: Several days Trouble concentrating on thi ngs, such as reading the newspaper or watching television: Not at all Moving or speaking so slowly that other people could have noticed; or the opposite, being so fidgety or restless that you have been moving around a lot more than usual: Not at all Thoughts that you would be b ozzie off or of hurting yourself in some way: Not at all Total Score: 13 Interpretation: Moderate Depression Intervention Depression Screening Findings: P ositve Follow-Up for Depression: Critical access hospital treatment assessment, Patient follow-up to return when and if necessary Suicide Risk Assessment Performed: Additional Evaluation for De pression: Psychiatric interview and evaluation Name of the standardized too l used for adult depression screening:: Patient Health Questionnaire (PHQ-9) Depression Screening ALF-7 (2018 Edition) Feelin g nervous, anxious, or on edge: Several days Not being able to stop or control worryi ng: Several days Worrying too much about different things : Several days Trouble relaxing: More than half the day s Being so restless that it is hard to sit still: Not at all Becoming easily annoyed or irritable: Se veral days Feeling afraid as if something awful hailee ht happen: Several days Amite-Suicide Severity Rating Scale Suicide Risk (CSRS-screener) in the past one month Have you wished you were or wished you could go to sleep and not wake up?: No in the past one month Have y ou actually had any thoughts of killing yourself?: No ?Have you ever done anything , started to do anything, or prepared to do anything to end your life?: No Examination Category Sub-Category Detail Notes Category Not es General Examination Mental Status Examination: Patient reports moderate depression with no improvement. Anxiety persists after discontinuation of lorazepam. Sleep disturbances noted, primarily due to unavailability of Belsomra. Patient is considering various treatment options including ketamine infusion, IM therapy, and ECT. Patient reports feeling blah and having difficulty getting up and going. Patient experienced increased difficulty during holidays without child. Patient reports being very busy with work. Vital Signs: review the notes for vitals Physical Examination: not performed during this visit Diagnostic Test Results and Labs: no recent test results or labs reported
--- OUTSIDE RECORDS SUMMARY | 2024-12-10 20:49 | XMS_ITS ---
Author Organization [facility] [email or web address] [facility] Address [address] [facility] [address] [place] [address] Care Team Providers Care Team Manager Name Role Phone Naveen Cardenas Unavailable [phone] REASON FOR VISIT New Refill Request Medications Medication SIG (Take, Route, Frequency, Duration) Notes Start Date End Date Status Lisdexamfetamine Dimesylate 60 MG 1 capsule in the morning by mouth Once a day for 15 days 11/06/2024 Active QUEtiapine Fumarate 100 MG 1 tablet Oral Once a day for 30 days Active Social History Sex Assigned At : Social History Observation Description Sex Assigned At Female Encounters Encounter Location Date Provider Diagnosis [facility] [employer] [facility] [address] [address] 11/05/2024 Naveen Cardenas Major depressive disorder, recurrent severe without psychotic features F33.2 and ADHD (attention deficit hyperactivity disorder), combined type F90.2 Assessments Encounter Date Diagnosis (ICD Code) Assessment Notes Treatment Notes Treatment Clinical Notes Section Notes 11/05/2024 Major depressive disorder, recurrent severe without psychotic features (ICD-10 - F33.2) 11/05/2024 ADHD (attention deficit hyperactivity disorder), combined type (ICD-10 - F90.2) Plan Of Treatment Medication Medication Name Sig Start Date Stop Date Notes Lisdexamfetamine Dimesylate 60 MG 1 caps ule in the morning by mouth Once a day for 15 days 11/06/2024 QUEtiapine Fumarate 100 MG 1 tablet Oral Once a day for 30 days Next Appt Details Provider Name:Naveen Cardenas , 01/28/2025 01:15:00 PM, [address], [facility] [address], [place], [address], Progress Notes * FRANCESCA SANDERSOB: [birth year] (38 yo F)Acc No.[id number]:11/05/2024 Patient:?ELADIO SANDERS :1985???Age:38 Y???Sex:Female Address:[address] [place] [address] [employer] [address] * Refills? Refill QUEtiapine Fumarate Tablet, 100 MG, Oral, 30 Tablet, 1 tablet, Once a day, 30 days, Refills=0 Refill Lisdexamfetamine Dimesylate Capsule, 60 MG, by mouth, 15 Capsule, 1 capsule in the morning, Once a day, 15 days, Refills=0 Subjective: * Chief Complaints: * ???New Refill Request * Medical History:? * Surgical History:? * Hospitalization/Major Diagno stic Procedure:? * Medications:? Objective: * Vitals:? * Physical Examination:? Assessment: * Assessment: 1.?Major depressive disorder , recurrent severe without psychotic features - F33.2???2.?ADHD (attention deficit hyperactivity disorder), combined type - F90.2??? Plan: * Treatment: 2.?ADHD (attention deficit h yperactivity disorder), combined type? Refill Lisdexamfetamine Dimesylate Capsule, 60 MG, 1 capsule in the morning, by mouth, Once a day, 15 days, 15 Capsule, Refills 0.?? * Procedure Codes:? * true * Date:? Generated for Aron og/Maximino/eTransmitting on:?12/10/2024 08:49 PM [employer] MACHINE
--- OUTSIDE RECORDS SUMMARY | 2024-12-10 20:49 | XMS_ITS | Patient Health Record ---
Author Organization 1 OF Jacquelyn howell DPM [facility] Address [address] [facility] [address] [place] [address] Care Team Providers Care Parachute Panel Joiner Name Role Phone UNKNOWN, UNKNOWN Primary Care Provider Unavailab Janie Ty Unavailable [phone] Allergies No Known Allergies Reason For Referral No Information Medications Medication SIG (Take, Route, Frequency, Duration) Notes Start Date End Date Status Vyvanse 60 MG TAKE 1 CAPSULE BY [facility] EVERY DAY IN THE MORNING Oral for 30 Days Active Zaleplon 10 MG Oral for 30 Days Active Propranolol HCl 10 MG Oral for 90 Days Active Cyanocobalamin 1000 MCG/ML Injection for 84 Days Active LORazepam 0.5 MG Oral for 30 Days Active Trintellix 10 MG Oral for 30 Days Active Social History Tobacco Use: Social History Observation Description Date Details (start date - stop date) Never Smoker NA - NA Tobacco Use/Smoking Question Answer Notes Are you a nonsmoker Problems Problem Type SNOMED Code ICD Code Onset Dates Problem Status W/U Status Risk Notes Problem Hallux valgus of left foot (6567181798) Hallux valgus of left foot (M20.12) Active confirmed Problem Hallux valgus of right foot (5189692539) Hallux valgus of right foot (M20.11) Active confirmed Plan Of Treatment No Information Insurance Providers Payer Name Payer Address Payer Phone Subscriber Number Group Number Insured Name Patient Relationship to Insured Coverage Start Date Coverage End Date [facility] [address] [place] [address] [id number] Cayla Bills Self - patient is the insured Medical (General) History Medical History History ICD Code Anxiety disorder, Depression, Migraines Surgical History Surgery Date(Month/Year) Spitz nevus removal on RT heel 11/2020
--- OUTSIDE RECORDS SUMMARY | 2024-12-10 20:49 | XMS_ITS ---
Author Organization 1 OF [facility] Address [address] [place] [address] Care Team Providers Care Tennis Centre Manager Name Role Phone UNKNOWN, UNKNOWN Primary Care Provider Unavailab Janie Ty Unavailable [phone] Allergies No Known Allergies REASON FOR VISIT B/L rebeca, interested in the lapiplasty Medications Medication SIG (Take, Route, Frequency, Duration) Notes Start Date End Date Status Vyvanse 60 MG TAKE 1 CAPSULE BY [facility] EVERY DAY IN THE MORNING Oral for [...] Notes Problem Hallux valgus of left foot (2596049674) Hallux valgus of left foot (M20.12) Active confirmed Problem Hallux valgus of right foot (7136245001) Hallux valgus of right foot (M20.11) Active confirmed Vital Signs Height 65 in 06/17/2023 Weight 165 lbs 06/17/2023 BMI 27.45 kg/m2 06/17/2023 Encounters Encounter Location Date Provider Diagnosis [facility] OF [facility] [address] [address] 06/17/2023 Janie Agudelo Hallux valgus of left foot M20.12 ; Hallux valgus of right foot M20.11 ; Nerve pain M79.2 ; Right foot pain M79.671 and Left foot pain M79.672 Assessments Encounter Date Diagnosis (ICD Code) Assessment Notes Treatment Notes Treatment Clinical Notes Section Notes 06/17/2023 Hallux valgus of left foot (ICD-10 - M20.12) 06/17/2023 Hallux valgus of right foot (ICD-10 - M20.11) Patient visit today included a review of medical history, review of systems, physical exam and discussion of exam findings, diagnostic test results, and discussion of diagnoses and treatment options. I discussed conservative and surgical treatment options for bunion surgery. I discussed conservative treatments of rest as needed, ice as needed, anti-inflammatory medication as needed. I discussed the use of gel bunion cushions and gel bunion separators. I also discussed the use of prefabricated and custom orthotics to possibly prevent further progression of the bunion deformity. She was advised to avoid shoes with a narrow toe box. She had questions regarding the lapiplasty procedure, which I answered. She was advised that she would have to have an appointment with Dr. Hall to discuss things further. All questions and concerns were addressed at this time and she will call back if she decides to proceed with surgery. 06/17/2023 Nerve pain (ICD-10 - M79.2) I did discuss that the sporadic pains that she experiences on the right foot for about 10-15 seconds may not be due to her bunion deformity and could potentially be nerve related from her lower back. 06/17/2023 Right foot pain (ICD-10 - M79.671) 06/17/2023 Left foot pain (ICD-10 - M79.672) Plan Of Treatment Treatment Notes Assessment Notes Hallux valgus of right foot Patient visi t today included a review of medical history, review of systems, physical exam and discussion of exam findings, diagnostic test results, and discussion of diagnoses and treatment options. I discussed conservative and surgical treatment options for bunion surgery. I discussed conservative treatments of rest as needed, ice as needed, anti-inflammatory medication as needed. I discussed the use of gel bunion cushions and gel bunion separators. I also discussed the use of prefabricated and custom orthotics to possibly prevent further progression of the bunion deformity. She was advised to avoid shoes with a narrow toe box. She had questions regarding the lapiplasty procedure, which I answered. She was advised that she would have to have an appointment with Dr. Hall to discuss things further. All questions and concerns were addressed at this time and she will call back if she decides to proceed with surgery. Nerve pain I did discuss that t he sporadic pains that she experiences on the right foot for about 10-15 seconds may not be due to her bunion deformity and could potentially be nerve related from her lower back. Next Appt Details Follow Up: prn, Reason: Progress Notes * Frank BILLSOB: 984 (37 yo F)Acc No.[id number]:06/17/2023 Progress Notes Patient:?Cayla Bills Provider:?Janie Agudelo DPM :1985???Age:37 Y???Sex:Female D ate:06/17/2023 Address:[facility] [address], [place] [address] Pcp:UNKNOWN UNKNOWN Subjective: * Chief Complaints: * ???B/L bunion, interested in the lapiplasty * HPI: ???MA assisting with visit::?HPI/Rooming:?Annette.?Primary reason for visit::?Pain level: ?Both feet:.?New Patient Evaluation: ?37 year old female, referred by internet when researching lapiplasty surgery, PTO with chief complaint of B/L bunions of 10-15 years duration with a gradual onset, worsened since the onset, causing sporadic pain on the RT foot bump (sharp and shooting for 20-30 seconds, like someone is poking with a needle) that comes and goes, rated 6/10 when it occurs, causing more pain over the past 1-2 years. Pt reports on the LT foot it hurts depending on the type of shoe she wears.? She states that wearing dress shoes and heels aggravates the condition, as well as prolonged standing/walking. She states that getting off of the feet alleviates the pain.? She denies trying medications to remedy the pain or RICE- ing since the duration of the pain is short, but it has reduced her physical activity. She is interested in the lapiplasty procedure. She admits that she suffers from back problems/pain..? * ROS:?GENERAL:?NAUSEA, FEVER OR CHILLS?denies,?denies.?UNEXPLAINED LOSS OR GAIN OF WEIGHT?denies.?UNEXPLAINED FATIGUE OR LACK OF ENERGY?denies.?RECENT FALL?denies.?PERIPHERAL VASCULAR:?FATIGUE IN CALF MUSCLE WHILE WALKING?denies.?PAIN, SWELLING OR FEELING OF TIGHTNESS IN LEG ?denies.?FREQUENT OR CHRONIC SWELLING OF LEGS?denies.?TOES TURN BLUE, WHITE, PAINFUL WITH COLD TEMPERATURE?denies.?NEUROLOGICAL:?DIZZINESS, LIGHT HEADED OR FAINTING?denies.?WEAKNESS OR PARALYSIS?denies.?DIFFICULTY WITH BALANCE?denies.?PERIPHERAL NEUROLOGICAL:?BURNING, TINGLING, STINGING SENSATION OF FEET?denies.?NUMBNESS OF FOOT / FEET?denies.?WEAKNESS OF FOOT / FEET?denies.?GASTROINTESTINAL:?ABDOMINAL PAIN?denies.?BLOODY STOOL?denies.?FREQUENT HEARTBURN?denies.?FREQUENT NAUSEA OR VOMITING?denies.?SKIN:?EXCESSIVE SWEATING OF FEET / HANDS?denies.?CHRONIC OR RECURRENT SKIN RASH?denies.?NONHEALING SKIN LESIONS?denies.?TENDENCY TO FORM THICK SCARS (KELOIDS)?denies.?MUSCULOSKELETAL:?LOW BACK PAIN?denies.?HIP PAIN?denies.?KNEE PAIN?denies.?SWELLING / STIFFNESS JOINTS OF HANDS / FEET?denies.?ENDOCRINE:?DELAYED HEALING OF WOUNDS?denies.?INTOLERANCE TO HEAT OR COLD?denies.?EXCESSIVE THIRST?denies.?FREQUENT URINATION?denies.?HEMATOLOGY/ONCOLOGY:?ANEMIA?denies.?BLEED or BRUISE EASILY?denies.?ANTI-COAGULANT USE?denies.? * Medical History:? * Surgical History:?Spitz nevu s removal on RT heel 11/2020 * Hospitalization/Major Diagno stic Procedure:? * Family History:? Depression(Father, sister). * Social History:?Tobacco Use:?Tobacco Use/Smoking?Are you a?nonsmoker ???Drugs/Alcohol:?Alcohol use: Yes:, Social alcohol use. ?Recreational drugs: Denies All. ???Miscellaneous:?Exercise: Sedentary. ?Living with: alone. ?Occupation: HR, Full-time. * Medications:?TakingTrintelli x 10 MG Tablet Oral LORazepam 0.5 MG Tablet Oral Cyanocobalamin 1000 MCG/ML Solution Injection Propranolol HCl 10 MG Tablet Oral Zaleplon 10 MG Capsule Oral Vyvanse 60 MG Capsule TAKE 1 CAPSULE BY MOUTH EVERY DAY IN THE MORNING Oral Medication List reviewed and reconciled with the patientTaking Trintellix 10 MG Tablet Oral Taking LORazepam 0.5 MG Tablet Oral Taking Cyanocobalamin 1000 MCG/ML Solution Injection Taking Propranolol HCl 10 MG Tablet Oral Taking Zaleplon 10 MG Capsule Oral Taking Vyvanse 60 MG Capsule TAKE 1 CAPSULE BY MOUTH EVERY DAY IN THE MORNING Oral Medication List reviewed and reconciled with the patient * Allergies:?N.K.D.A.no[Allerg ies Verified] Objective: * Vitals:?Wt:165 lbs, Wt-k 4.84 kg, Ht: 65 in, BMI:27.45 Index. * Examination: ???General Examination: ?Constitutional / Appearance: ?No acute distress , Well nourished, Appropriate personal hygiene.?Mental status: ?Cooperative, Oriented to person, place and time, Mood and affect: normal, Judgement and intellect: normal with appropriate response to questions.?Shoes today:?Birkenstock sandals.?Lower Extremity VASCULAR: : ?Pulses:?DP and PT pulses, palpable, bilateral.?Temperature gradient: ?warm from proximal to distal, bilateral.?Pedal hair: ?present, bilateral.?Capillary refill at distal toes? less than 3 seconds, bilateral.?Lower Extremity DERM: : ?Skin: ?well hydrated , no suspicious lesions, without interdigital maceration, bilateral.?Lower Extremity MSK: : ?Gait? Gait unremarkable with normal posture, propulsion and balance.?Foot type:?Bilateral lower extremity exhibits?relatively decreased medial arch.?Muscle strength: ?5/5 , all 4 quadrants tested , bilateral.?Left lower extremity inspection and palpation: ?No palpable masses or nodules noted. There is a bunion deformity noted along the first metatarsophalangeal joint.? No acute pain with palpation or range of motion of the first metatarsophalangeal joint.? No crepitus noted with range of motion of the joint. Minimal tracking of the hallux noted at the first metatarsophalangeal joint..?Right lower extremity inspection and palpation: ?No palpable masses or nodules noted.?There is a bunion deformity noted along the first metatarsophalangeal joint.? No acute pain with palpation or range of motion of the first metatarsophalangeal joint.? No crepitus noted with range of motion of the joint. Some?tracking of the hallux noted at the first metatarsophalangeal joint..?Lower Extremity NEURO: : ?General sensation appears? intact, bilateral.?Muscle tone? within normal limits, bilateral.?Tarsal tunnel evaluation: ?Unremarkable with no pain or paresthesias noted b/l..?Diagnostic Studies: : ?X-rays of left lower extremity:?3 views ofleftfoot: Significant findings include: No acute fractures or dislocations noted.? Increased first intermetatarsal space angle of about 10.5 degrees. Prominence of the medial aspect of the first metatarsal head noted.? Mild lateral deviation of the hallux noted at the first metatarsophalangeal joint. Tibial sesamoid position of about a 3. Mild first metatarsal elevatus noted ?Decreased calcaneal inclination angle..?X-rays of right lower extremity:?3 views ofrightfoot:Significant findings include:?No acute fractures or dislocations noted.? Increased first intermetatarsal space angle of about 13.5 degrees. Prominence of the medial aspect of the first metatarsal head noted.? Some lateral deviation of the hallux noted at the first metatarsophalangeal joint. Tibial sesamoid position of about a 5. First metatarsal elevatus?noted??Decreased calcaneal inclination angle..? Assessment: * Assessment: 1.?Hallux valgus of left chelsey t - M20.12 (Primary)?2.?Hallux valgus of right foot - M20.11?3.?Nerve pain - M79.2?4.?Right foot pain - M79.671?5.?Left foot pain - M79.672? Plan: * Treatment: 2.?Nerve pain? Notes: I did discuss that the sporadic pains that she experiences on the right foot for about 10-15 seconds may not be due to her bunion deformity and could potentially be nerve related from her lower back.?? * Procedure Codes:?83059 X-RAY FOOT (3 views), Modifiers: [place] 54154 X-RAY FOOT (3 views), Modifiers: RT * Preventive Medicine:? ??Counseling:?Care goal follow-up plan:?Above Normal BMI Follow-up?Lifestyle education regarding diet * Follow Up:?prn * Images: * Sign off status: Completed true * Provider:?Janie Agudelo DPM Date:?2022 Generated for Aron og/Maximino/eTransmitting on:?12/10/2024 08:48 PM LICENSED NURSING ASSISTANT History and Physical Notes * HPI (History of Present Illness) Category Sub-Category Detail Notes Category Not es Primary reason for visit: New Patient Evaluation: 37 year old female, referred by internet when researching lapiplasty surgery, PTO with chief complaint of B/L bunions of 10-15 years duration with a gradual onset, worsened since the onset, causing sporadic pain on the RT foot bump (sharp and shooting for 20-30 seconds, like someone is poking with a needle) that comes and goes, rated 6/10 when it occurs, causing more pain over the past 1-2 years. Pt reports on the LT foot it hurts depending on the type of shoe she wears. She states that wearing dress shoes and heels aggravates the condition, as well as prolonged standing/walking. She states that getting off of the feet alleviates the pain. She denies trying medications to remedy the pain or RICE-ing since the duration of the pain is short, but it has reduced her physical activity. She is interested in the lapiplasty procedure. She admits that she suffers from back problems/pain. Pain level: Both feet: MA assisting with visit: HPI/Rooming: Annette Examination Category Sub-Category Detail Notes Category Not es General Examination Mental status: Cooperative, Oriented to person, place and time, Mood and affect: normal, Judgement and intellect: normal with appropriate response to questions Shoes today: Birkenstock sandals Constitutional / Appearance: No acute di stress , Well nourished, Appropriate personal hygiene Lower Extremity VASCULAR: Pulses: DP and PT pulse s, palpable, bilateral Temperature gradient: warm from proximal to distal, bilateral Pedal hair: present, bilateral Capillary refill at distal toes less sowmya n 3 seconds, bilateral Lower Extremity NEURO: General sensation appears intac t, bilateral Muscle tone within normal limits , bilateral Tarsal tunnel evaluation: Unremarkable w ith no pain or paresthesias noted b/l. Lower Extremity MSK: Muscle strength: 5/5 , all 4 quad rants tested , bilateral Foot type: Bilateral lower extr emity exhibits relatively decreased medial arch Left lower extremity inspect ion and palpation: No palpable masses or nodules noted. The re is a bunion deformity noted along the first metatarsophalangeal joint. No acute pain with palpation or range of motion of the first metatarsophalangeal joint. No crepitus noted with range of motion of the joint. Minimal tracking of the hallux noted at the first metatarsophalangeal joint. Right lower extremity inspec tion and palpation: No palpable masses or nodules noted. The re is a bunion deformity noted along the first metatarsophalangeal joint. No acute pain with palpation or range of motion of the first metatarsophalangeal joint. No crepitus noted with range of motion of the joint. Some tracking of the hallux noted at the first metatarsophalangeal joint. Gait Gait unremarkable wi th normal posture, propulsion and balance Diagnostic Studies: X-rays of left lower extremity: 3 views of left foot: Significant findings include: No acute fractures or dislocations noted. Increased first intermetatarsal space angle of about 10.5 degrees. Prominence of the medial aspect of the first metatarsal head noted. Mild lateral deviation of the hallux noted at the first metatarsophalangeal joint. Tibial sesamoid position of about a 3. Mild first metatarsal elevatus noted Decreased calcaneal inclination angle. X-rays of right lower extremity: 3 views of right foot: Significant findings include: No acute fractures or dislocations noted. Increased first intermetatarsal space angle of about 13.5 degrees. Prominence of the medial aspect of the first metatarsal head noted. Some lateral deviation of the hallux noted at the first metatarsophalangeal joint. Tibial sesamoid position of about a 5. First metatarsal elevatus noted Decreased calcaneal inclination angle. Lower Extremity DERM: Skin: well hydra naye , no suspicious lesions, without interdigital maceration, bilateral
--- OUTSIDE RECORDS SUMMARY | 2024-12-10 20:50 | XMS_ITS | Clinical Summary ---
Author Organization [email or web address] [address] - [address] Address [address] [facility] [address] [place] [address] Phone Care Team Providers Care Visual Education Director Name Role Phone Jose Maria Darling MD Primary Care Provider Social History Tobacco Use Types Packs/Day Years Used Date Smoking Tobacco: Never Assessed Comments Unknown Sex and Gender Information Value Date Recorded Sex Assigned at Not on file Legal Sex Female 11:32 AM MOLD CHANGER Gender Identity Not on file Sexual Orientation Not on file Plan of Treatment Health Maintenance Due Date Last Done Comments DTAP/TDAP/TD VACCINES (1 - Tdap) 2002 HEPATITIS B VACCINES (1 of 3 - 19+ 3-dose series) 2002 CERVICAL CANCER SCREENING 2013 BREAST CANCER SCREENING 2023 INFLUENZA VACCINE (#1) 2024 HPV VACCINES Aged Out No longer eligi ble based on patient's age to complete this topic PNEUMOCOCCAL VACCINE 0-64 YEARS Aged Out No longer eligible based on patient's age to complete this topic Insurance [employer] HMO Care Teams Visual Education Director Relationship Specialty Start Date End Date Jose Maria Darling MD [address] [place] [phone] PCP - General Family Practice 02/04/17
--- OUTSIDE RECORDS SUMMARY | 2024-12-10 20:50 | XMS_ITS | Clinical Summary ---
Author Organization [facility] Address [address] [place] [address] Phone Care Team Providers Care Inspector Pawnshop Detail Name Role Phone Provider, None Primary Care Provider Unavailabl e Allergies No known active allergies Medications FLUoxetine (PROzac) 40 MG Capsule Take 40 mg by mouth daily. Active Social History Tobacco Use Types Packs/Day Years Used Date Smoking Tobacco: Never Smokeless Tobacco: Never Tobacco Cessation:Counseling Given: Not Answered Alcohol Use Standard Drinks/Week Comments Yes 0 (1 standard drink = 0.6 oz pur e alcohol) socially Comments Unknown Sex and Gender Information Value Date Recorded Sex Assigned at Not on file Legal Sex Female 2:11 AM CLINICAL REVIEW SPECIALIST Gender Identity Not on file Sexual Orientation Not on file Last Filed Vital Signs Vital Sign Reading Time Taken Comments Blood Pressure 113/82 09/23/2023 4:15 AM CLINICAL REVIEW SPECIALIST Pulse 76 09/23/2023 4:15 AM CLINICAL REVIEW SPECIALIST Temperature 36.9 ??C (98.4 ??F) 09/23/2023 2:22 AM CS T Respiratory Rate 17 09/23/2023 2:22 AM CLINICAL REVIEW SPECIALIST Oxygen Saturation 98% 09/23/2023 4:15 AM CLINICAL REVIEW SPECIALIST Inhaled Oxygen Concentration - - Weight 77.1 kg (170 lb) 09/23/2023 2:22 AM CLINICAL REVIEW SPECIALIST Height 165.1 cm (5' 5 ) 09/23/2023 2:22 AM CLINICAL REVIEW SPECIALIST Body Mass Index 28.29 09/23/2023 2:22 AM CLINICAL REVIEW SPECIALIST Plan of Treatment Health Maintenance Due Date Last Done Comments Hepatitis C Virus (HCV) Screening 1983 Hepatitis B Immunization (1 of 3 - 19+ 3-dose series) 2002 Pap Smear 2004 Cervical Cancer Screening (CCS) 2013 HPV/Cotest 2013 Discussion re Starting/Frequency of Mammograms 2023 Influenza Immunization (#1) 07/19/202407/20, 08/06/2019, 08/06/2019 SARS-COV-2 Immunization ( - 2023-25 season) 2024 Respiratory Syncytial Virus (RSV) Immunization (Adult) (1 - 1-dose 75+ series) 2058 DTaP/Tdap/Td Immunization Discontinued 02/12/2014 TdaP Immunization Completed 02/12/2014 Meningococcal Immunization (ACWY) Aged Out No longer eligible based on patient's age to complete this topic Pneumococcal Immunization Combined Aged Out No longer eligible based on patient's age to complete this topic Rotavirus Immunization Aged Out No lo nger eligible based on patient's age to complete this topic Insurance Care Teams Inspector Pawnshop Detail Relationship Specialty Start Date End Date Provider, None [place] PCP - General 09/23/23
--- OUTSIDE RECORDS SUMMARY | 2024-12-10 20:50 | XMS_ITS | Clinical Summary ---
Author Organization [facility] Address [address] [place] [address] Care Team Providers Care Packaging Line Operator Name Role Phone No, Physician Primary Care Provider [phone] Allergies Active Allergy Reactions Criticality Noted Date Comments Vilazodone Hcl Nausea only,Other (S ee comments) Low Reaction: restless legs, insomnia, nausea, Medications zaleplon (SONATA) 10 mg capsule Take 1 capsule (10 mg total) by mouth nightly 08/28/2017 Active LORazepam (ATIVAN) 1 mg tablet Take 1.5 tablets (1.5 mg total) by mouth nightly as needed Active VYVANSE 70 mg capsule Take 1 capsule (70 mg total) by mouth every morning 0 09/10/2018 Active propranolol (INDERAL) 10 mg tablet Take 1 tablet (10 mg total) by mouth nightly 11/16/2019 Active melatonin 10 mg tablet Take 1 tablet (10 mg total) by mouth nightly Active ergocalciferol (VITAMIN D) 50,000 unit capsule 05/28/2021 Active amoxicillin (AMOXIL) 500 mg tablet/capsuleI ndications:Prop hylaxis, Medical Take 4 caps (2000 mg) 1 hour prior to procedure. 4 tablet/capsul e 07/15/2023 Active FLUoxetine (PROzac) 40 mg capsule Take 1 capsule (40 mg total) by mouth daily Active Active Problems Problem Noted Date Diagnosed Date Spitz nevus 10/04/2020 Overview (10/04/2020): Added automatically from request for surgery [id number] Melanocytic nevi of right lower limb, including hip 09/28/2020 Overview (09/28/2020): Added automatically from request for surgery [id number] Mitral valve prolapse 12/11/2019 Paroxysmal SVT (supraventricular tachycardia) 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 12/31/2016 Otitis media 08/14/2015 Overview (02/21/2017): Otitis media Acute pharyngitis 08/14/2015 Overview (02/21/2017): Acute pharyngitis Sinusitis 03/24/2015 Overview (02/21/2017): Sinusitis Depression 02/12/2014 Overview (02/20/2017): Depression Anxiety 02/12/2014 Overview (02/21/2017): Anxiety Atopic rhinitis 02/12/2014 Overview (02/21/2017): Allergic rhinitis Migraine 02/12/2014 Overview (02/23/2017): Migraine Chest pain 06/27/2011 Encounter for preventive health examination 11/2009 Immunizations Name Administration Dates Next Due Influenza, Quadrivalent, Lydia l Culture-based MDCK, Preservative Free, Antibiotic Free, Intramuscular 08/12/2020 Influenza, Quadrivalent, Spl it, Intramuscular 08/06/2019 Influenza, Quadrivalent, Spl it, Preservative Free, Intramuscular 08/06/2019 Influenza, Trivalent, IM (MDV) 07/12/2014,2013,07/03/2013 Tdap 02/12/2014 Surgical History Surgery Date Site/Laterality Comments REDUCTION MAMMOPLASTY breast reduction TONSILLECTOMY Tonsillectomy OTHER SURGICAL HISTORY Bilateral reduction mammoplasty SECTION Medical History Medical History Date Comments Hx Other Medical hx of paroxysma l tachycardia. Hx Other Medical hx of mtiral va lve d/o. Hx Other Medical Dr. Kline/ Fisheries Enforcement Officer [facility]. Hx Other Medical Dr. Anderson/colon therapist e. Depression Depression Mitral valve insufficiency Insuf ficiency of mitral valve; Comments: OAC 04/06/2015 - Atrial paroxysmal tachycardia (HCC) Paroxysmal atrial tachycardia; Comments: OAC 04/06/2015 - Motion sickness Family History Medical History Relation Name Comments Depression Father Depression; Hyperlipidemia Father Hyperlipidemi a; Esophageal cancer Maternal Grandfather Ca ncer, esophageal; Pancreatic cancer Maternal Grandmother Ca ncer, pancreas; Heart disease Mother Family history of cardiac disorder - (Added by TW Conv) Other Mother Alive and well; /tachycardia; Depression Other Family history of Depression; Coronary artery disease Paternal Grandfather Coronary artery disease; Cause of : Coronary artery disease Depression Sister 1 Depression; Other Sister 2 opiod abuse; Other Sister 3 multiple person ality d/o; Other Sister 4 WPW; Heart disease Sister 5 Family history of cardiac disorder - (Added by TW Conv) Relation Name Status Comments Father Maternal Grandfather Maternal Grandmother Mother Alive Other Paternal Grandfather Sister 1 Sister 2 Sister 3 Sister 4 Sister 5 Social History Tobacco Use Types Packs/Day Years Used Date Smoking Tobacco: Never Passive Smoke Exposure: Never Smokeless Tobacco: Never Tobacco Cessation:Counseling Given: Not Answered Alcohol Use Standard Drinks/Week Comments Yes 0 (1 standard drink = 0.6 oz pure alcohol) one drink once or twice per month Comments Unknown Sex and Gender Information Value Date Recorded Sex Assigned at Not on file Legal Sex Female 9:11 PM ACCURACY EXPERT Gender Identity Female 12/06/2020 12:10 PM ACCURACY EXPERT Sexual Orientation Straight 12/06/2020 12 :10 PM ACCURACY EXPERT Obstetrics History Last Filed Vital Signs Vital Sign Reading Time Taken Comments Blood Pressure 114/83 07/13/2024 11:28 AM CDT Pulse 82 07/13/2024 11:28 AM CDT Temperature 36.7 ??C (98 ??F) 07/13/2024 11:28 AM CDT Respiratory Rate 13 11/29/2020 9:20 AM ACCURACY EXPERT Oxygen Saturation 100% 07/13/2024 11:28 AM CDT Inhaled Oxygen Concentration - - Weight 80.3 kg (177 lb) 07/13/2024 11:28 AM CDT Height 165.1 cm (5' 5 ) 07/13/2024 11:28 AM CDT Body Mass Index 29.45 07/13/2024 11:28 AM CDT Plan of Treatment Health Maintenance Due Date Last Done Comments Cervical Cancer Screening 1983 Depression Screening 1983 Hepatitis C Screening 1983 Varicella Vaccines (1 of 2 - 13+ 2-dose series) 1996 Hepatitis B Screening 2001 Regular Well Visit/Exam 18-64 2001 DTaP/Tdap/Td Vaccine (2 - Td or Tdap) 02/13/2024 02/12/2014 Influenza Vaccine (#1) 2024 0, 08/06/2019, 08/06/2019, Additional history exists Breast Cancer Screening-Mammogram 08/03/2025 08/03/2024 HPV Vaccines Aged Out No longer eligi ble based on patient's age to complete this topic Pneumococcal vaccine <65 Aged Out No longer eligible based on patient's age to complete this topic Procedures Procedure Name Priority Date/Time Associated Diagnosis Comments SCREENING MAMMOGRAM BILATERAL W LEX Schedule Routine, Read Routine (OP Routine) 08/03/2024 3:07 PM CDT Screening mammogram, encounter for from Last 3 Months or Most Recently Relevant to Health Maintenance Results * Screening Mammogram Bilateral W Lex (08/03/2024 3:07 PM CDT) Anatomical Region Laterality Modality Breast Bilateral Mammography Narrative 08/04/2024 4:08 PM CDT Mammogram Technique: Bilateral Digital Breast Tomosynthesis, Bilateral C-view 2D Screening mammogram. ??Views obtained: ??bilateral craniocaudal and bilateral mediolateral oblique. ??Computer Aided Detection was performed. Mammogram Findings: This is a baseline study. The breasts are heterogeneously dense, which may obscure small masses. There is an oval mass measuring 9 millimeters in the 10:30 of the right breast located 7 centimeters from the nipple. This may represent a cyst. There is no suspicious abnormality in the left breast. Impression: Mass in the right breast requires additional evaluation. An ultrasound exam is recommended at this time. OVERALL FINAL ASSESSMENT: BI-RADS CATEGORY 0: ??Incomplete: ??Need additional imaging evaluation. Procedure Note Ar Castellanos MD - 08/04/2024 Mammogram Technique: Bilateral Digital Breast Tomosynthesis, Bilateral C-view 2D Screening mammogram. Views obtained: bilateral craniocaudal and bilateral mediolateral oblique. Computer Aided Detection was performed. Mammogram Findings: This is a baseline study. The breasts are heterogeneously dense, which may obscure small masses. There is an oval mass measuring 9 millimeters in the 10:30 of the right breast located 7 centimeters from the nipple. This may represent a cyst. There is no suspicious abnormality in the left breast. Impression: Mass in the right breast requires additional evaluation. An ultrasoundexam is recommended at this time. OVERALL FINAL ASSESSMENT: BI-RADS CATEGORY 0: Incomplete: Need additional imaging evaluation. us Self Screening Mammogram IMG MAMMO PROCEDURES Fi nal Result from Last 3 Months or Most Recently Relevant to Health Maintenance Insurance [address] [facility] [address] [place] [employer] [address] [employer] Care Teams Packaging Line Operator Relationship Specialty Start Date End Date No, Physician PCP - General 12/03/18
--- OUTSIDE RECORDS SUMMARY | 2024-12-10 20:50 | XMS_ITS | Patient Health Record ---
Author Organization [facility] As Lendino [facility] Address [address] [place] [address] Care Team Providers Care Supervisor [employer] Former Name Role Phone Naveen aCrdenas Unavailable [phone] KennethMarissa banegas Unavailable [phone] Migration, Provider Unavailable Unavailable Allergies No Known Allergies Results Component Value Reference Range Notes UDT Reviewed date:12/05/2024 06:39:25 PM Interpretation: Performing Lab: Notes/Report: THC P 0 - 50 ng/ml Cocaine N 0 - 300 ng/ml Amphetamine P 0 - 1000 ng/ml Buprenorphine (BUP) N 0 - 10 ng/ml Secobarbital (Bar) N 0 - 300 ng/ml Oxazepam (BZO) N 0 - 300 ng/ml 2-cmttwbncjq-5,4-smsuslxh-6,3-diphenylpyrrolidine (FAWN P) N 0 - 300 ng/ml Methamphetamine (MET) N 0 - 1000 ng/ml Methylenedioxymethamphetamine (MDMA) N 0 - 500 ng/ml Morphine (MOP 300/[id number]) N 0 - 300 ng/ml Methadone (MTD) N 0 - 300 ng/ml Phencyclidine (PCP) N 0 - 25 ng/ml Propoxyphene (PPX) N 0 - 300 ng/ml Nortriptyline (TCA) N 0 - 1000 ng/ml Oxycodone N 0 - 300 ng/ml UDT Reviewed date:04/22/2024 09:44:21 PM Interpretation:Abnormal Performing Lab: Notes/Report: Abnormal THC neg 0 - 50 ng/ml Cocaine neg Amphetamine pos Buprenorphine (BUP) neg Secobarbital (Bar) neg Oxazepam (BZO) pos 7-rvyrbxjpso-3,9-zdyclecq-4,3-diphenylpyrrolidine (FAWN P) neg Methamphetamine (MET) neg Methylenedioxymethamphetamine (MDMA) neg Morphine (MOP 300/[id number]) neg Methadone (MTD) neg Phencyclidine (PCP) neg Propoxyphene (PPX) neg Nortriptyline (TCA) neg UDT Reviewed date:08/26/2024 11:31:37 AM Interpretation: Performing Lab: Notes/Report: THC N 0 - 50 ng/ml Cocaine N 0 - 300 ng/ml Amphetamine P 0 - 1000 ng/ml Buprenorphine (BUP) N 0 - 10 ng/ml Secobarbital (Bar) N 0 - 300 ng/ml Oxazepam (BZO) N 0 - 300 ng/ml 1-fqvrhlmlrv-7,8-attcetjl-0,3-diphenylpyrrolidine (FAWN P) N 0 - 300 ng/ml Methamphetamine (MET) N 0 - 1000 ng/ml Methylenedioxymethamphetamine (MDMA) N 0 - 500 ng/ml Morphine (MOP 300/[id number]) N 0 - 300 ng/ml Methadone (MTD) N 0 - 300 ng/ml Phencyclidine (PCP) N 0 - 25 ng/ml Propoxyphene (PPX) N 0 - 300 ng/ml Oxycodone N 0 - 300 ng/ml UDT Reviewed date:07/24/2024 05:19:46 PM Interpretation: Performing Lab: Notes/Report: THC n 0 - 50 ng/ml Cocaine n 0 - 300 ng/ml Amphetamine p 0 - 1000 ng/ml Buprenorphine (BUP) n 0 - 10 ng/ml Secobarbital (Bar) n 0 - 300 ng/ml Oxazepam (BZO) n 0 - 300 ng/ml 2-jspmtpjsms-5,0-ousavmcq-0,3-diphenylpyrrolidine (FAWN P) n 0 - 300 ng/ml Methamphetamine (MET) n 0 - 1000 ng/ml Methylenedioxymethamphetamine (MDMA) n 0 - 500 ng/ml Morphine (MOP 300/[id number]) n 0 - 300 ng/ml Methadone (MTD) n 0 - 300 ng/ml Phencyclidine (PCP) n 0 - 25 ng/ml Propoxyphene (PPX) n 0 - 300 ng/ml Nortriptyline (TCA) n 0 - 1000 ng/ml Oxycodone n 0 - 300 ng/ml UDT Reviewed date:06/01/2024 02:24:52 PM Interpretation: Performing Lab: Notes/Report: THC N 0 - 50 ng/ml Cocaine N 0 - 300 ng/ml Amphetamine N 0 - 1000 ng/ml Buprenorphine (BUP) N 0 - 10 ng/ml Secobarbital (Bar) N 0 - 300 ng/ml Oxazepam (BZO) P 0 - 300 ng/ml 6-woilwldfpz-1,0-mrynjdsj-1,3-diphenylpyrrolidine (FAWN P) N 0 - 300 ng/ml Methamphetamine (MET) N 0 - 1000 ng/ml Methylenedioxymethamphetamine (MDMA) N 0 - 500 ng/ml Morphine (MOP 300/[id number]) N 0 - 300 ng/ml Methadone (MTD) N 0 - 300 ng/ml Phencyclidine (PCP) N 0 - 25 ng/ml Propoxyphene (PPX) N 0 - 300 ng/ml Nortriptyline (TCA) N 0 - 1000 ng/ml Reason For Referral Reason ECT referral, She durham s failed Esketamine, TMS and have moderate to severe depression. not responding to treatment. Diagnosis 1 Major depressive dis order, recurrent, moderate (F33.1) [facility] Organization [facility] Referring Provider First Name Naveen Referring Provider Last Name Theresa Referring Provider Speciality Psychiatry Referred Provider ECT Psychiatry, Inte rventional Referred Provider Specialty Psychiatry Referral Priority Routine Medications Medication SIG (Take, Route, Frequency, Duration) Notes Start Date End Date Status FLUoxetine HCl 20 MG 2 capsule Orally Once a day for 90 days dose reduce Active QUEtiapine Fumarate 100 MG 1 tablet Oral Once a day for 30 days Active Propranolol HCl 10 MG Oral 02/27/2024 Active Cyanocobalamin 1000 MCG/ML Injection 02/27/2024 Active Ergocalciferol 1.25 MG (02017 UT) Oral 02/27/2024 Active MIRENA 21 MCG/24 HR (UP TO 8 YEARS) 52 MG INTRAUTERINE DEVICE *Reorder from [employer] for eRx and Interaction Alerts* 02/27/2024 Active Lisdexamfetamine Dimesylate 60 MG 1 capsule in the morning by mouth Once a day for 30 days 12/02/2024 Active Esketamine HCl (84 MG Dose) 28 MG/DEVICE Nasal 02/27/2024 Not-Takin g Auvelity 45-105 MG 1 tablet in the morning Orally twice a day for 90 days Active QUEtiapine Fumarate ER 150 MG 1 tablet in the evening Orally Once a day for 90 days 12/02/2024 Active buPROPion HCl ER (XL) 150 MG Oral 02/27/2024 Not-Taking Zaleplon 10 MG 1 capsule every night Orally Once a day for 30 days 12/02/2024 Active Belsomra 20 MG TAKE 1 TABLET BY MOUTH DAILY AT BEDTIME Oral for 30 Days Active Social History [...] to 4 times a month (2 points) Problems Problem Type SNOMED Code ICD Code Onset Dates Problem Status W/U Status Risk Notes Problem Moderate recurrent major depression (94708867) Major depressive disorder, recurrent, moderate (F33.1) Active confirmed Problem 15456052 Major depressive disorder, recurrent severe without psychotic features (F33.2) Active confirmed Problem Generalized anxiety disorder (39756851) Generalized anxiety disorder (F41.1) Active confirmed Problem 0995527 Primary insomnia (F51.01) Active confirmed Problem Body mass index 30+ - obesity (706634521) Body mass index (BMI) 30.0-30.9, adult (Z68.30) Active confirmed Problem Attention deficit hyperactivity disorder (818833200) ADHD (attention deficit hyperactivity disorder), combined type (F90.2) Active confirmed Vital Signs Heart Rate 93 /min 12/02/2024 Oximetry 96 % 08/04/2024 120/84 Height-cm 165.10 cm 12/02/2024 Blood pressure diastolic 82 mm Hg 12/02/2024 Weight-kg 72.76 kg 12/02/2024 Height 65.00 in 12/02/2024 Blood pressure systolic 115 mm Hg 12/02/2024 Weight 160.4 lbs 12/02/2024 BMI 26.69 kg/m2 12/02/2024 Encounters Encounter Location Date Provider Diagnosis [address] [address] 12/17/2023 Provider Migration Other fatigue R53.[address] [address] 12/19/2023 Naveen Theresa Major depressive disorder, recurrent, moderate F33.[address] [address] 12/30/2023 Naveen Theresa Major depressive disorder, recurrent severe without psychotic features F33.[address] [address] 01/17/2024 Marissa Zuniga Other fatigue R53.83 ; Primary insomnia F51.01 ; Vitamin D deficiency, unspecified E55.9 ; Generalized anxiety disorder F41.1 ; Major depressive disorder, recurrent, moderate F33.1 and Panic disorder [episodic paroxysmal anxiety] without agoraphobia F41.[address] [address] 02/17/2024 Naveen Theresa Other fatigue R53.83 ; Major depressive disorder, recurrent, moderate F33.1 ; Primary insomnia F51.01 ; Body mass index (BMI) 30.0-30.9, adult Z68.30 ; Generalized anxiety disorder F41.1 and Vitamin D deficiency, unspecified E55.9 [facility] [id number] [facility] [address] [address] 02/27/2024 Marissa Zuniga Vitamin D deficiency , unspecified E55.9 ; Primary insomnia F51.01 ; Generalized anxiety disorder F41.1 ; Panic disorder [episodic paroxysmal anxiety] without agoraphobia F41.0 ; Major depressive disorder, recurrent severe without psychotic features F33.2 ; Other fatigue R53.83 and Body mass index (BMI) 30.0-30.9, adult Z68.30 [facility], [facility] [address] [place] [address] 04/22/2024 Naveen Theresa Major depressive disorder, recurrent severe without psychotic features F33.2 and Primary insomnia F51.01 [facility] [address] [place] [address] 05/06/2024 Naveen Theresa Major depressive disorder, recurrent severe without psychotic features F33.2 ; Primary insomnia F51.01 ; Major depressive disorder, recurrent, moderate F33.1 ; Body mass index (BMI) 30.0-30.9, adult Z68.30 and ADHD (attention deficit hyperactivity disorder), combined type F90.2 [facility], [facility] [address] [place] [address] 06/01/2024 Naveen Theresa Major depressive disorder, recurrent severe without psychotic features F33.2 ; Primary insomnia F51.01 ; Major depressive disorder, recurrent, moderate F33.1 ; Body mass index (BMI) 30.0-30.9, adult Z68.30 and ADHD (attention deficit hyperactivity disorder), combined type F90.2 [facility], [facility] [address] [facility] [address] [place] [address] 06/29/[address] [facility] [address] [facility] [address] [place] [address] 07/23/2024 Naveen Theresa Major depressive disorder, recurrent severe without psychotic features F33.2 ; Primary insomnia F51.01 ; Major depressive disorder, recurrent, moderate F33.1 ; Body mass index (BMI) 30.0-30.9, adult Z68.30 and ADHD (attention deficit hyperactivity disorder), combined type F90.2 [facility], [facility] [address] [facility] [address] [place] [address] 07/28/2024 Naveen Theresa Major depressive disorder, recurrent severe without psychotic features F33.2 [facility], [facility] [address] [place] [address] 08/04/2024 Naveen Theresa Major depressive disorder, recurrent severe without psychotic features F33.2 [facility], [facility] [address] [place] [address] 08/11/2024 Naveen Theresa Major depressive disorder, recurrent severe without psychotic features F33.2 [facility], [facility] [address] [place] [address] 08/18/2024 Naveen Theresa Major depressive disorder, recurrent severe without psychotic features F33.2 [facility], [facility] [address] [facility] [address] [place] [address] 08/21/2024 Naveen Theresa [facility], [facility] [address] [place] [address] 08/26/2024 Naveen Theresa Major depressive disorder, recurrent severe without psychotic features F33.2 ; Primary insomnia F51.01 ; Major depressive disorder, recurrent, moderate F33.1 ; Body mass index (BMI) 30.0-30.9, adult Z68.30 and ADHD (attention deficit hyperactivity disorder), combined type F90.2 [facility], [facility] [address] [facility] [address] [place] [address] 08/28/2024 Naveen Theresa Major depressive disorder, recurrent severe without psychotic features F33.2 [facility], [facility] [address] [place] [address] 09/01/2024 Naveen Theresa Major depressive disorder, recurrent severe without psychotic features F33.2 [facility], [facility] [address] [facility] [address] [place] [address] 09/15/2024 Naveen Theresa Major depressive disorder, recurrent severe without psychotic features F33.2 [facility], [facility] [address] [place] [address] 09/25/2024 Naveen Theresa Major depressive disorder, recurrent severe without psychotic features F33.2 ; Primary insomnia F51.01 ; Major depressive disorder, recurrent, moderate F33.1 ; Body mass index (BMI) 30.0-30.9, adult Z68.30 and ADHD (attention deficit hyperactivity disorder), combined type F90.2 [facility], [facility] [address] [place] [address] 09/25/2024 Naveen Theresa [facility], [facility] [address] [place] [address] 09/29/2024 Naveen [facility], [facility] [address] [place] [address] 10/06/2024 Naveen [facility], [facility] [address] [place] [address] 10/13/2024 [facility], [facility] [address] [place] [address] 10/29/20[facility] [address] [place] [address] [facility] depressive disorder, recurrent severe without psychotic features F33.2 ; Primary insomnia F51.01 ; Body mass index (BMI) 30.0-30.9, adult Z68.30 and ADHD (attention deficit hyperactivity disorder), combined type F90.2 [facility], [facility] [address] [place] [address] 12/10/2023 Provider Migration [facility], [facility] [address] [place] [address] 12/17/2023 Provider [facility], [facility] [address] [place] [address] 12/18/2023 Provider [facility], [facility] [address] [place] [address] 01/17/2024 Provider [facility], [facility] [address] [place] [address] 02/06/2024 Provider [facility], [facility] [address] [place] [address] 02/14/2024 Provider Migration [facility], [facility] [address] [place] [address] 02/17/2024 Provider [facility], [facility] [address] [place] [address] 02/20/2024 Provider [facility], [facility] [address] [place] [address] 02/23/2024 Provider [facility], [facility] [address] [place] [address] 02/24/2024 Provider [facility], [facility] [address] [place] [address] 02/27/2024 Provider [facility], [facility] [address] [place] [address] 02/28/2024 Provider Migration [facility], [facility] [address] [place] [address] 03/02/2024 Provider [facility], [facility] [address] [place] [address] 03/20/2024 Provider [facility], [facility] [address] [place] [address] 03/29/2024 Provider [facility], [facility] [address] [place] [address] 04/04/2024 Provider Migration [facility], [facility] [address] [place] [address] 04/05/2024 [facility], [facility] [address] [place] [address] 05/04/2024 Marissa Zuniga Body mass index (BMI ) 30.0-30.9, adult Z68.30 [facility], [facility] [address] [place] [address] 05/29/2024 Marissa Zuniga [facility], [facility] [address] [place] [address] 06/01/2024 Marissa Zuniga [facility], [facility] [address] [place] [address] 06/19/2024 Marissa Zuniga [facility], [facility] [address] [place] [address] 07/24/2024 Marissa Zuniga [facility], [facility] [address] [place] [address] 09/23/2024 Naveen Cardenas [facility], [facility] [address] [place] [address] 04/15/2024 Marissa Zuniga [facility], [facility] [address] [place] [address] 06/23/2024 Marissa Zuniga [facility], [facility] [address] [place] [address] 06/25/2024 Naveen Cardenas Major depressive disorder, recurrent, moderate F33.1 [facility], [facility] [address] [place] [address] 07/13/2024 Marissa Zuniga [facility], [facility] [address] [place] [address] 07/15/2024 Marisas Zuniga Primary insomnia F51.01 and Generalized anxiety disorder F41.1 [facility], [facility] [address] [place] [address] 07/24/2024 Marissa Zuniga Major depressive disorder, recurrent, moderate F33.1 [facility], [facility] [address] [place] [address] 07/24/2024 Marissa Zuniga Major depressive disorder, recurrent, moderate F33.1 [facility], [facility] [address] [place] [address] 07/24/2024 Marissa Zuniga [facility], [facility] [address] [place] [address] 07/28/2024 Marissa Zuniga [facility], [facility] [address] [place] [address] 08/21/2024 Naveen Cardenas [facility], [facility] [address] [place] [address] 10/06/2024 Naveencarol Cardenas [facility], [facility] [address] [place] [address] 11/05/2024 Naveen Cardenas Major depressive disorder, recurrent severe without psychotic features F33.2 and ADHD (attention deficit hyperactivity disorder), combined type F90.2 Assessments Encounter Date Diagnosis (ICD Code) Assessment Notes Treatment Notes Treatment Clinical Notes Section Notes 12/19/2023 Major depressive disorder, recurrent, moderate (ICD-10 - F33.1) 12/30/2023 Major depressive disorder, recurrent severe without psychotic features (ICD-10 - F33.2) 02/27/2024 Vitamin D deficiency, unspecified (ICD-10 - E55.9) 02/27/2024 Major depressive disorder, recurrent severe without psychotic features (ICD-10 - F33.2) 02/27/2024 Generalized anxiety disorder (ICD-10 - F41.1) 02/27/2024 Primary insomnia (ICD-10 - F51.01) 02/27/2024 Other fatigue (ICD-10 - R53.83) 02/27/2024 Panic disorder [episodic paroxysmal anxiety] without agoraphobia (ICD-10 - F41.0) 02/27/2024 Body mass index (BMI) 30.0-30.9, adult (ICD-10 - Z68.30) 07/23/2024 Major depressive disorder, recurrent severe without psychotic features (ICD-10 - F33.2) Preventing Depression From Coming Back: Care Instructions material was published Anxiety and Irritability due to Lorazepam Discontinuation - Assessment: Patient has been off Lorazepam for one and a half weeks and is experiencing increased irritability. However, discontinuing Lorazepam is advised as it can decrease the efficacy of Spravato. - Plan: - Keep the patient off Lorazepam. Insomnia and Mood Stabilization - Assessment: Patient is currently on Quetiapine 50 mg, which has shown some improvement in sleep and mood. An increase in dosage is recommended to further help with irritability and augment the efficacy of Fluoxetine. - Plan: - Increase Quetiapine dosage to 100 mg. Depression Management - Assessment: Patient's insurance does not cover VNS for depression. Spravato (esketamine) treatment, approved until November 2024, needs to be restarted. Patient has been trying to schedule Spravato treatments for 3-4 weeks. - Plan: - Restart Spravato treatment, beginning with once-a-week sessions at 84 mg. ADHD Management - Assessment: Patient is currently on Vyvanse 60 mg, which seems to be working well. Charisse IVAN did not work for the patient. - Plan: - Continue Vyvanse 60 mg. Follow-up and Monitoring - Plan: - Schedule a one-month follow-up appointment to assess response to increased Quetiapine dosage and restarted Spravato treatment. - Patient will complete a UDT this afternoon before 5 pm. - Complete necessary paperwork for re-registering with the [facility] program for Spravato treatment. Current Medications - Vyvanse 60 mg - Zaleplon (Sonata) - Propranolol 10 mg - Fluoxetine 40 mg - Quetiapine (Seroquel) 50 mg, to be increased to 100 mg 08/26/2024 Major depressive disorder, recurrent severe without psychotic features (ICD-10 - F33.2) Esketamine to be administered once a week with a follow-up appointment after the 8th esketamine treatment. Dosing Spravato 84 Mg Insomnia - Assessment: Patient reports rebound insomnia after stopping clonazepam. Currently taking daridorexant but still experiencing sleep disturbances. Has tried similar medications with increased anxiety. Genesight test indicates rapid metabolism of medications. Patient reports new issue of waking up at 3:00-3:30 AM. - Plan: - Discontinue zaleplon. - Initiate Belsomra 10 mg for one week, then increase to 20 mg if tolerated. - Instruct patient to take half a tablet at bedtime and another half if waking up in the middle of the night. - Monitor for sleep improvement and any side effects. - Advised patient there may be an adjustment period of 1-2 weeks. Depression - Assessment: Patient has been undergoing Spravato treatment once a week for the past four weeks, with some improvement in motivation. PHQ-9 score has decreased from 15 to 12 in the past month. Currently taking fluoxetine 40 mg and ketamine 100 mg. Patient reports ketamine was initially helpful for sleep but effectiveness decreased after 3-4 weeks. - Plan: - Continue Spravato once a week until coverage expires on November 27. - Monitor depressive symptoms and adjust treatment as needed. Sleep-related Anxiety - Assessment: Patient reports frustration upon waking up and difficulty returning to sleep. - Plan: - Monitor patient's response to Belsomra. - Consider adjusting treatment if sleep-related anxiety persists. Medication Coverage - Assessment: Belsomra is covered by the patient's insurance. Spravato coverage expires on November 27. - Plan: - Ensure patient has access to necessary medications. - Assist with any coverage issues as needed. - Send prescriptions to [facility]. 12/02/2024 Major depressive disorder, recurrent severe without psychotic features (ICD-10 - F33.2) Major Depressive Disorder - Assessment: Patient reports moderate depression with no improvement, feeling blah and not better or worse. - Plan: - Continue Fluoxetine 40 mg daily, 90-day supply sent to [facility]. - Consider ketamine infusion or IM therapy; patient to research VNS before proceeding. - Referral for ECT can be sent to [facility] if needed. - Patient to consider Auvelity [...] Fluoxetine and Auvelity to be sent to [facility] for 90-day supply. - Vyvanse and Xalatan to be sent to local pharmacy. - Patient to request refills online through the portal. Follow-up - Plan: - Schedule a follow-up appointment in 2 months. - Patient to print summary from the portal if needed for ketamine infusion consideration. - Patient informed about [facility] infusion center in [place] for ketamine treatment. Insurance - Assessment: Patient has new insurance ([place] as of November 18. 12/02/2024 Primary insomnia (ICD-10 - F51.01) Insomnia: Care Instructions material was published Major Depressive Disorder - Assessment: Patient reports moderate depression with no improvement, feeling blah and not better or worse. - Plan: - Continue Fluoxetine 40 mg daily, 90-day supply sent to [facility]. - Consider ketamine infusion or IM therapy; patient to research VNS before proceeding. - [facility]. - Patient to consider Auvelity [...] Fluoxetine and Auvelity to be sent to [facility] for 90-day supply. - Vyvanse and Xalatan to be sent to local pharmacy. - Patient to request refills online through the portal. Follow-up - Plan: - Schedule a follow-up appointment in 2 months. - Patient to print summary from the portal if needed for ketamine infusion consideration. - Patient informed about [facility] infusion center in [place] for ketamine treatment. Insurance - Assessment: Patient has new insurance ([place] as of November 18. 09/25/2024 Major depressive disorder, recurrent severe without psychotic features (ICD-10 - F33.2) Esketamine to be administered once a week with a follow-up appointment after the 8th esketamine treatment. Dosing Spravato 84 Mg Depression and Irritability - Assessment: Patient reports feeling irritable and short-tempered, especially with son and work. No suicidal thoughts reported. - Plan: - Continue esketamine (Spravato) once a week - Decrease fluoxetine to 20 mg daily - Add low dose of Auvelity (sample provided): start with one capsule once a day in the morning for three days, then increase to twice a day with an eight-hour gap - Re-evaluate in one month Anxiety - Plan: - Monitor for potential increase in propranolol levels due to decreased fluoxetine dose, which may help with anxiety Insomnia - Assessment: Patient reports inconsistent effectiveness of sleep medication, with some nights of good sleep and others with difficulty falling asleep. - Plan: - Continue Belsomra for sleep - Consider 90-day prescription at the next visit Fatigue and Decreased Motivation - Assessment: Patient reports low motivation for housework and some work tasks. Patient has been on Vyvanse for 5-6 years, may need a change in medication class. - Plan: - Consider switching Vyvanse to methylphenidate at the next visit if Auvelity is not effective - Re-evaluate in one month Medication Refill - Plan: - Refill Vyvanse for a 30-day supply this month - Discuss potential medication changes at the next visit - Continue quetiapine at 100 mg Additional Notes - Assessment: Patient reports difficulty adjusting to daylight savings time changes. - Plan: - Consider impact of seasonal changes on mood and energy levels 09/15/2024 Major depressive disorder, recurrent severe without psychotic features (ICD-10 - F33.2) 09/01/2024 Major depressive disorder, recurrent severe without psychotic features (ICD-10 - F33.2) 08/28/2024 Major depressive disorder, recurrent severe without psychotic features (ICD-10 - F33.2) 08/18/2024 Major depressive disorder, recurrent severe without psychotic features (ICD-10 - F33.2) 08/11/2024 Major depressive disorder, recurrent severe without psychotic features (ICD-10 - F33.2) 08/04/2024 Major depressive disorder, recurrent severe without psychotic features (ICD-10 - F33.2) 07/24/2024 Major depressive disorder, recurrent, moderate (ICD-10 - F33.1) 07/24/2024 Major depressive disorder, recurrent, moderate (ICD-10 - F33.1) 11/05/2024 Major depressive disorder, recurrent severe without psychotic features (ICD-10 - F33.2) 06/01/2024 Major depressive disorder, recurrent severe without psychotic features (ICD-10 - F33.2) Preventing Depression From Coming Back: Care Instructions material was published Major Depressive Disorder - Assessment: Patient reports worsening depression over the past month despite being on current medications. Patient has a history of trying multiple treatments with limited success. - Plan: - Continue Jornay PM, fluoxetine, and Contrave. - Initiate quetiapine 50 mg at bedtime for a month to address depressive symptoms and irritability. - Begin the referral process for ECT and consider esketamine treatment if needed. - Reevaluate the patient's response to quetiapine and overall depressive symptoms in one month. Attention Deficit Hyperactivity Disorder (ADHD) - Assessment: Patient is currently on Jornay PM for ADHD symptoms. - Plan: Continue Jornay PM and monitor the patient's response. Insomnia - Assessment: Patient reports taking multiple medications to fall asleep. - Plan: Continue current sleep medications (Zolpidem, lorazepam) and monitor the patient's sleep quality. Weight Management - Assessment: Patient is currently on Contrave for weight management but reports no significant improvement. - Plan: Continue Contrave for now and reevaluate its effectiveness in one month. Insurance Coverage for Treatment Options - Assessment: Patient reports difficulty with insurance coverage for VNS and Latuda. - Plan: - Discuss the insurance coverage issue with the VNS representative phlebotomy services. - Consider alternative medications (quetiapine, aripiprazole) that are covered by the patient's insurance. 04/22/2024 Major depressive disorder, recurrent severe without psychotic features (ICD-10 - F33.2) Preventing Depression From Coming Back: Care Instructions material was published 04/22/2024 Primary insomnia (ICD-10 - F51.01) Insomnia: Care Instructions material was published 02/17/2024 Vitamin D deficiency, unspecified (ICD-10 - E55.9) 02/17/2024 Major depressive disorder, recurrent, moderate (ICD-10 - F33.1) 02/17/2024 Generalized anxiety disorder (ICD-10 - F41.1) 02/17/2024 Primary insomnia (ICD-10 - F51.01) 02/17/2024 Other fatigue (ICD-10 - R53.83) 02/17/2024 Body mass index (BMI) 30.0-30.9, adult (ICD-10 - Z68.30) 01/17/2024 Vitamin D deficiency, unspecified (ICD-10 - E55.9) 01/17/2024 Major depressive disorder, recurrent, moderate (ICD-10 - F33.1) 01/17/2024 Generalized anxiety disorder (ICD-10 - F41.1) 01/17/2024 Primary insomnia (ICD-10 - F51.01) 01/17/2024 Other fatigue (ICD-10 - R53.83) 01/17/2024 Panic disorder [episodic paroxysmal anxiety] without agoraphobia (ICD-10 - F41.0) 12/17/2023 Other fatigue (ICD-10 - R53.83) 07/28/2024 Major depressive disorder, recurrent severe without psychotic features (ICD-10 - F33.2) 06/25/2024 Major depressive disorder, recurrent, moderate (ICD-10 - F33.1) 05/06/2024 Major depressive disorder, recurrent severe without psychotic features (ICD-10 - F33.2) Preventing Depression From Coming Back: Care Instructions material was published Major Depressive Disorder - Assessment: Patient reports no improvement in depression or anxiety after starting Rexulti for two weeks. The patient also reports increased appetite and waking up in the middle of the night to eat, which is unusual for them. - Plan: - Discontinue Rexulti. - Reassess in one month. Weight Management - Assessment: Patient is currently on Contrave and inquires about the duration for improvement. - Plan: - Increase Contrave dosage to two tablets twice a day (total of four tablets daily). ADHD and Binge Eating - Assessment: Patient is currently on Vyvanse and reports a decrease in effectiveness over time. - Plan: - Discontinue Vyvanse. - Switch to Jornay PM 80 mg, to be taken at night for a slow-release effect in the morning. Vagus Nerve Stimulation (VNS) Therapy - Assessment: Patient has not received any updates regarding VNS therapy. - Plan: - Follow up with Hamida from the VNS team via email to obtain further information on the status of the therapy. Follow-up Appointment - Plan: - Schedule a follow-up appointment in one month to reassess the patient's progress and make any necessary adjustments to the treatment plan. 05/06/2024 Primary insomnia (ICD-10 - F51.01) Insomnia: Care Instructions material was published Major Depressive Disorder - Assessment: Patient reports no improvement in depression or anxiety after starting Rexulti for two weeks. The patient also reports increased appetite and waking up in the middle of the night to eat, which is unusual for them. - Plan: - Discontinue Rexulti. - Reassess in one month. Weight Management - Assessment: Patient is currently on Contrave and inquires about the duration for improvement. - Plan: - Increase Contrave dosage to two tablets twice a day (total of four tablets daily). ADHD and Binge Eating - Assessment: Patient is currently on Vyvanse and reports a decrease in effectiveness over time. - Plan: - Discontinue Vyvanse. - Switch to Jornay PM 80 mg, to be taken at night for a slow-release effect in the morning. Vagus Nerve Stimulation (VNS) Therapy - Assessment: Patient has not received any updates regarding VNS therapy. - Plan: - Follow up with Hamida from the VNS team via email to obtain further information on the status of the therapy. Follow-up Appointment - Plan: - Schedule a follow-up appointment in one month to reassess the patient's progress and make any necessary adjustments to the treatment plan. 06/01/2024 Primary insomnia (ICD-10 - F51.01) Insomnia: Care Instructions material was published Major Depressive Disorder - Assessment: Patient reports worsening depression over the past month despite being on current medications. Patient has a history of trying multiple treatments with limited success. - Plan: - Continue Jornay PM, fluoxetine, and Contrave. - Initiate quetiapine 50 mg at bedtime for a month to address depressive symptoms and irritability. - Begin the referral process for ECT and consider esketamine treatment if needed. - Reevaluate the patient's response to quetiapine and overall depressive symptoms in one month. Attention Deficit Hyperactivity Disorder (ADHD) - Assessment: Patient is currently on Jornay PM for ADHD symptoms. - Plan: Continue Jornay PM and monitor the patient's response. Insomnia - Assessment: Patient reports taking multiple medications to fall asleep. - Plan: Continue current sleep medications (Zolpidem, lorazepam) and monitor the patient's sleep quality. Weight Management - Assessment: Patient is currently on Contrave for weight management but reports no significant improvement. - Plan: Continue Contrave for now and reevaluate its effectiveness in one month. Insurance Coverage for Treatment Options - Assessment: Patient reports difficulty with insurance coverage for VNS and Latuda. - Plan: - Discuss the insurance coverage issue with the VNS representative phlebotomy services. - Consider alternative medications (quetiapine, aripiprazole) that are covered by the patient's insurance. 11/05/2024 ADHD (attention deficit hyperactivity disorder), combined type (ICD-10 - F90.2) 07/15/2024 Primary insomnia (ICD-10 - F51.01) Electronic Prior Authorization was requested for QUEtiapine Fumarate 50 MG Tablet. Provider can order medication once approval received. 09/25/2024 Primary insomnia (ICD-10 - F51.01) Insomnia: Care Instructions material was published Depression and Irritability - Assessment: Patient reports feeling irritable and short-tempered, especially with son and work. No suicidal thoughts reported. - Plan: - Continue esketamine (Spravato) once a week - Decrease fluoxetine to 20 mg daily - Add low dose of Auvelity (sample provided): start with one capsule once a day in the morning for three days, then increase to twice a day with an eight-hour gap - Re-evaluate in one month Anxiety - Plan: - Monitor for potential increase in propranolol levels due to decreased fluoxetine dose, which may help with anxiety Insomnia - Assessment: Patient reports inconsistent effectiveness of sleep medication, with some nights of good sleep and others with difficulty falling asleep. - Plan: - Continue Belsomra for sleep - Consider 90-day prescription at the next visit Fatigue and Decreased Motivation - Assessment: Patient reports low motivation for housework and some work tasks. Patient has been on Vyvanse for 5-6 years, may need a change in medication class. - Plan: - Consider switching Vyvanse to methylphenidate at the next visit if Auvelity is not effective - Re-evaluate in one month Medication Refill - Plan: - Refill Vyvanse for a 30-day supply this month - Discuss potential medication changes at the next visit - Continue quetiapine at 100 mg Additional Notes - Assessment: Patient reports difficulty adjusting to daylight savings time changes. - Plan: - Consider impact of seasonal changes on mood and energy levels 12/02/2024 Body mass index (BMI) 30.0-30.9, adult (ICD-10 - Z68.30) Major Depressive Disorder - Assessment: Patient reports moderate depression with no improvement, feeling blah and not better or worse. - Plan: - Continue Fluoxetine 40 mg daily, 90-day supply sent to [facility]. - Consider ketamine infusion or IM therapy; patient to research VNS before proceeding. - [facility] - Patient to consider Auvelity [...] Fluoxetine and Auvelity to be sent to [facility] for 90-day supply. - Vyvanse and Xalatan to be sent to local pharmacy. - Patient to request refills online through the portal. Follow-up - Plan: - Schedule a follow-up appointment in 2 months. - Patient to print summary from the portal if needed for ketamine infusion consideration. - Patient informed about [facility] infusion center in [place] for ketamine treatment. Insurance - Assessment: Patient has new insurance ([place]) as of November 18. 08/26/2024 Primary insomnia (ICD-10 - F51.01) Insomnia: Care Instructions material was published Insomnia - Assessment: Patient reports rebound insomnia after stopping clonazepam. Currently taking daridorexant but still experiencing sleep disturbances. Has tried similar medications with increased anxiety. Genesight test indicates rapid metabolism of medications. Patient reports new issue of waking up at 3:00-3:30 AM. - Plan: - Discontinue zaleplon. - Initiate Belsomra 10 mg for one week, then increase to 20 mg if tolerated. - Instruct patient to take half a tablet at bedtime and another half if waking up in the middle of the night. - Monitor for sleep improvement and any side effects. - Advised patient there may be an adjustment period of 1-2 weeks. Depression - Assessment: Patient has been undergoing Spravato treatment once a week for the past four weeks, with some improvement in motivation. PHQ-9 score has decreased from 15 to 12 in the past month. Currently taking fluoxetine 40 mg and ketamine 100 mg. Patient reports ketamine was initially helpful for sleep but effectiveness decreased after 3-4 weeks. - Plan: - Continue Spravato once a week until coverage expires on November 27. - Monitor depressive symptoms and adjust treatment as needed. Sleep-related Anxiety - Assessment: Patient reports frustration upon waking up and difficulty returning to sleep. - Plan: - Monitor patient's response to Belsomra. - Consider adjusting treatment if sleep-related anxiety persists. Medication Coverage - Assessment: Belsomra is covered by the patient's insurance. Spravato coverage expires on November 27. - Plan: - Ensure patient has access to necessary medications. - Assist with any coverage issues as needed. - Send prescriptions to [facility]. 07/23/2024 Primary insomnia (ICD-10 - F51.01) Insomnia: Care Instructions material was published Anxiety and Irritability due to Lorazepam Discontinuation - Assessment: Patient has been off Lorazepam for one and a half weeks and is experiencing increased irritability. However, discontinuing Lorazepam is advised as it can decrease the efficacy of Spravato. - Plan: - Keep the patient off Lorazepam. Insomnia and Mood Stabilization - Assessment: Patient is currently on Quetiapine 50 mg, which has shown some improvement in sleep and mood. An increase in dosage is recommended to further help with irritability and augment the efficacy of Fluoxetine. - Plan: - Increase Quetiapine dosage to 100 mg. Depression Management - Assessment: Patient's insurance does not cover VNS for depression. Spravato (esketamine) treatment, approved until November 2024, needs to be restarted. Patient has been trying to schedule Spravato treatments for 3-4 weeks. - Plan: - Restart Spravato treatment, beginning with once-a-week sessions at 84 mg. ADHD Management - Assessment: Patient is currently on Vyvanse 60 mg, which seems to be working well. kenxus MARZENA did not work for the patient. - Plan: - Continue Vyvanse 60 mg. Follow-up and Monitoring - Plan: - Schedule a one-month follow-up appointment to assess response to increased Quetiapine dosage and restarted Spravato treatment. - Patient will complete a UDT this afternoon before 5 pm. - Complete necessary paperwork for re-registering with the [facility] program for Spravato treatment. Current Medications - Vyvanse 60 mg - Zaleplon (Sonata) - Propranolol 10 mg - Fluoxetine 40 mg - Quetiapine (Seroquel) 50 mg, to be increased to 100 mg 05/04/2024 Body mass index (BMI) 30.0-30.9, adult (ICD-10 - Z68.30) 07/23/2024 Major depressive disorder, recurrent, moderate (ICD-10 - F33.1) Anxiety and Irritability due to Lorazepam Discontinuation - Assessment: Patient has been off Lorazepam for one and a half weeks and is experiencing increased irritability. However, discontinuing Lorazepam is advised as it can decrease the efficacy of Spravato. - Plan: - Keep the patient off Lorazepam. Insomnia and Mood Stabilization - Assessment: Patient is currently on Quetiapine 50 mg, which has shown some improvement in sleep and mood. An increase in dosage is recommended to further help with irritability and augment the efficacy of Fluoxetine. - Plan: - Increase Quetiapine dosage to 100 mg. Depression Management - Assessment: Patient's insurance does not cover VNS for depression. Spravato (esketamine) treatment, approved until November 2024, needs to be restarted. Patient has been trying to schedule Spravato treatments for 3-4 weeks. - Plan: - Restart Spravato treatment, beginning with once-a-week sessions at 84 mg. ADHD Management - Assessment: Patient is currently on Vyvanse 60 mg, which seems to be working well. Charisse IVAN did not work for the patient. - Plan: - Continue Vyvanse 60 mg. Follow-up and Monitoring - Plan: - Schedule a one-month follow-up appointment to assess response to increased Quetiapine dosage and restarted Spravato treatment. - Patient will complete a UDT this afternoon before 5 pm. - Complete necessary paperwork for re-registering with the [facility] program for Spravato treatment. Current Medications - Vyvanse 60 mg - Zaleplon (Sonata) - Propranolol 10 mg - Fluoxetine 40 mg - Quetiapine (Seroquel) 50 mg, to be increased to 100 mg 12/02/2024 ADHD (attention deficit hyperactivity disorder), combined type (ICD-10 - F90.2) Major Depressive Disorder - Assessment: Patient reports moderate depression with no improvement, feeling blah and not better or worse. - Plan: - Continue Fluoxetine 40 mg daily, 90-day supply sent to [facility]. - Consider ketamine infusion or IM therapy; patient to research VNS before proceeding. - Referral for ECT can be sent to [facility] if needed. - Patient to consider Auvelity [...] Fluoxetine and Auvelity to be sent to [facility] for 90-day supply. - Vyvanse and Xalatan to be sent to local pharmacy. - Patient to request refills online through the portal. Follow-up - Plan: - Schedule a follow-up appointment in 2 months. - Patient to print summary from the portal if needed for ketamine infusion consideration. - Patient informed about [facility] infusion center in [place] for ketamine treatment. Insurance - Assessment: Patient has new insurance ([place]) as of November 18. 09/25/2024 Major depressive disorder, recurrent, moderate (ICD-10 - F33.1) Depression and Irritability - Assessment: Patient reports feeling irritable and short-tempered, especially with son and work. No suicidal thoughts reported. - Plan: - Continue esketamine (Spravato) once a week - Decrease fluoxetine to 20 mg daily - Add low dose of Auvelity (sample provided): start with one capsule once a day in the morning for three days, then increase to twice a day with an eight-hour gap - Re-evaluate in one month Anxiety - Plan: - Monitor for potential increase in propranolol levels due to decreased fluoxetine dose, which may help with anxiety Insomnia - Assessment: Patient reports inconsistent effectiveness of sleep medication, with some nights of good sleep and others with difficulty falling asleep. - Plan: - Continue Belsomra for sleep - Consider 90-day prescription at the next visit Fatigue and Decreased Motivation - Assessment: Patient reports low motivation for housework and some work tasks. Patient has been on Vyvanse for 5-6 years, may need a change in medication class. - Plan: - Consider switching Vyvanse to methylphenidate at the next visit if Auvelity is not effective - Re-evaluate in one month Medication Refill - Plan: - Refill Vyvanse for a 30-day supply this month - Discuss potential medication changes at the next visit - Continue quetiapine at 100 mg Additional Notes - Assessment: Patient reports difficulty adjusting to daylight savings time changes. - Plan: - Consider impact of seasonal changes on mood and energy levels 06/01/2024 Major depressive disorder, recurrent, moderate (ICD-10 - F33.1) Major Depressive Disorder - Assessment: Patient reports worsening depression over the past month despite being on current medications. Patient has a history of trying multiple treatments with limited success. - Plan: - Continue Jornay PM, fluoxetine, and Contrave. - Initiate quetiapine 50 mg at bedtime for a month to address depressive symptoms and irritability. - Begin the referral process for ECT and consider esketamine treatment if needed. - Reevaluate the patient's response to quetiapine and overall depressive symptoms in one month. Attention Deficit Hyperactivity Disorder (ADHD) - Assessment: Patient is currently on Jornay PM for ADHD symptoms. - Plan: Continue Jornay PM and monitor the patient's response. Insomnia - Assessment: Patient reports taking multiple medications to fall asleep. - Plan: Continue current sleep medications (Zolpidem, lorazepam) and monitor the patient's sleep quality. Weight Management - Assessment: Patient is currently on Contrave for weight management but reports no significant improvement. - Plan: Continue Contrave for now and reevaluate its effectiveness in one month. Insurance Coverage for Treatment Options - Assessment: Patient reports difficulty with insurance coverage for VNS and Latuda. - Plan: - Discuss the insurance coverage issue with the VNS representative phlebotomy services. - Consider alternative medications (quetiapine, aripiprazole) that are covered by the patient's insurance. 07/15/2024 Generalized anxiety disorder (ICD-10 - F41.1) 08/26/2024 Major depressive disorder, recurrent, moderate (ICD-10 - F33.1) Insomnia - Assessment: Patient reports rebound insomnia after stopping clonazepam. Currently taking daridorexant but still experiencing sleep disturbances. Has tried similar medications with increased anxiety. Genesight test indicates rapid metabolism of medications. Patient reports new issue of waking up at 3:00-3:30 AM. - Plan: - Discontinue zaleplon. - Initiate Belsomra 10 mg for one week, then increase to 20 mg if tolerated. - Instruct patient to take half a tablet at bedtime and another half if waking up in the middle of the night. - Monitor for sleep improvement and any side effects. - Advised patient there may be an adjustment period of 1-2 weeks. Depression - Assessment: Patient has been undergoing Spravato treatment once a week for the past four weeks, with some improvement in motivation. PHQ-9 score has decreased from 15 to 12 in the past month. Currently taking fluoxetine 40 mg and ketamine 100 mg. Patient reports ketamine was initially helpful for sleep but effectiveness decreased after 3-4 weeks. - Plan: - Continue Spravato once a week until coverage expires on November 27. - Monitor depressive symptoms and adjust treatment as needed. Sleep-related Anxiety - Assessment: Patient reports frustration upon waking up and difficulty returning to sleep. - Plan: - Monitor patient's response to Belsomra. - Consider adjusting treatment if sleep-related anxiety persists. Medication Coverage - Assessment: Belsomra is covered by the patient's insurance. Spravato coverage expires on November 27. - Plan: - Ensure patient has access to necessary medications. - Assist with any coverage issues as needed. - Send prescriptions to [facility]. 05/06/2024 Major depressive disorder, recurrent, moderate (ICD-10 - F33.1) Major Depressive Disorder - Assessment: Patient reports no improvement in depression or anxiety after starting Rexulti for two weeks. The patient also reports increased appetite and waking up in the middle of the night to eat, which is unusual for them. - Plan: - Discontinue Rexulti. - Reassess in one month. Weight Management - Assessment: Patient is currently on Contrave and inquires about the duration for improvement. - Plan: - Increase Contrave dosage to two tablets twice a day (total of four tablets daily). ADHD and Binge Eating - Assessment: Patient is currently on Vyvanse and reports a decrease in effectiveness over time. - Plan: - Discontinue Vyvanse. - Switch to Jornay PM 80 mg, to be taken at night for a slow-release effect in the morning. Vagus Nerve Stimulation (VNS) Therapy - Assessment: Patient has not received any updates regarding VNS therapy. - Plan: - Follow up with Hamida from the VNS team via email to obtain further information on the status of the therapy. Follow-up Appointment - Plan: - Schedule a follow-up appointment in one month to reassess the patient's progress and make any necessary adjustments to the treatment plan. 06/01/2024 Body mass index (BMI) 30.0-30.9, adult (ICD-10 - Z68.30) Major Depressive Disorder - Assessment: Patient reports worsening depression over the past month despite being on current medications. Patient has a history of trying multiple treatments with limited success. - Plan: - Continue Jornay PM, fluoxetine, and Contrave. - Initiate quetiapine 50 mg at bedtime for a month to address depressive symptoms and irritability. - Begin the referral process for ECT and consider esketamine treatment if needed. - Reevaluate the patient's response to quetiapine and overall depressive symptoms in one month. Attention Deficit Hyperactivity Disorder (ADHD) - Assessment: Patient is currently on Jornay PM for ADHD symptoms. - Plan: Continue Jornay PM and monitor the patient's response. Insomnia - Assessment: Patient reports taking multiple medications to fall asleep. - Plan: Continue current sleep medications (Zolpidem, lorazepam) and monitor the patient's sleep quality. Weight Management - Assessment: Patient is currently on Contrave for weight management but reports no significant improvement. - Plan: Continue Contrave for now and reevaluate its effectiveness in one month. Insurance Coverage for Treatment Options - Assessment: Patient reports difficulty with insurance coverage for VNS and Latuda. - Plan: - Discuss the insurance coverage issue with the VNS representative phlebotomy services. - Consider alternative medications (quetiapine, aripiprazole) that are covered by the patient's insurance. 09/25/2024 Body mass index (BMI) 30.0-30.9, adult (ICD-10 - Z68.30) Depression and Irritability - Assessment: Patient reports feeling irritable and short-tempered, especially with son and work. No suicidal thoughts reported. - Plan: - Continue esketamine (Spravato) once a week - Decrease fluoxetine to 20 mg daily - Add low dose of Auvelity (sample provided): start with one capsule once a day in the morning for three days, then increase to twice a day with an eight-hour gap - Re-evaluate in one month Anxiety - Plan: - Monitor for potential increase in propranolol levels due to decreased fluoxetine dose, which may help with anxiety Insomnia - Assessment: Patient reports inconsistent effectiveness of sleep medication, with some nights of good sleep and others with difficulty falling asleep. - Plan: - Continue Belsomra for sleep - Consider 90-day prescription at the next visit Fatigue and Decreased Motivation - Assessment: Patient reports low motivation for housework and some work tasks. Patient has been on Vyvanse for 5-6 years, may need a change in medication class. - Plan: - Consider switching Vyvanse to methylphenidate at the next visit if Auvelity is not effective - Re-evaluate in one month Medication Refill - Plan: - Refill Vyvanse for a 30-day supply this month - Discuss potential medication changes at the next visit - Continue quetiapine at 100 mg Additional Notes - Assessment: Patient reports difficulty adjusting to daylight savings time changes. - Plan: - Consider impact of seasonal changes on mood and energy levels 07/23/2024 Body mass index (BMI) 30.0-30.9, adult (ICD-10 - Z68.30) Anxiety and Irritability due to Lorazepam Discontinuation - Assessment: Patient has been off Lorazepam for one and a half weeks and is experiencing increased irritability. However, discontinuing Lorazepam is advised as it can decrease the efficacy of Spravato. - Plan: - Keep the patient off Lorazepam. Insomnia and Mood Stabilization - Assessment: Patient is currently on Quetiapine 50 mg, which has shown some improvement in sleep and mood. An increase in dosage is recommended to further help with irritability and augment the efficacy of Fluoxetine. - Plan: - Increase Quetiapine dosage to 100 mg. Depression Management - Assessment: Patient's insurance does not cover VNS for depression. Spravato (esketamine) treatment, approved until November 2024, needs to be restarted. Patient has been trying to schedule Spravato treatments for 3-4 weeks. - Plan: - Restart Spravato treatment, beginning with once-a-week sessions at 84 mg. ADHD Management - Assessment: Patient is currently on Vyvanse 60 mg, which seems to be working well. Charisse IVAN did not work for the patient. - Plan: - Continue Vyvanse 60 mg. Follow-up and Monitoring - Plan: - Schedule a one-month follow-up appointment to assess response to increased Quetiapine dosage and restarted Spravato treatment. - Patient will complete a UDT this afternoon before 5 pm. - Complete necessary paperwork for re-registering with the [facility] program for Spravato treatment. Current Medications - Vyvanse 60 mg - Zaleplon (Sonata) - Propranolol 10 mg - Fluoxetine 40 mg - Quetiapine (Seroquel) 50 mg, to be increased to 100 mg 08/26/2024 Body mass index (BMI) 30.0-30.9, adult (ICD-10 - Z68.30) Insomnia - Assessment: Patient reports rebound insomnia after stopping clonazepam. Currently taking daridorexant but still experiencing sleep disturbances. Has tried similar medications with increased anxiety. Genesight test indicates rapid metabolism of medications. Patient reports new issue of waking up at 3:00-3:30 AM. - Plan: - Discontinue zaleplon. - Initiate Belsomra 10 mg for one week, then increase to 20 mg if tolerated. - Instruct patient to take half a tablet at bedtime and another half if waking up in the middle of the night. - Monitor for sleep improvement and any side effects. - Advised patient there may be an adjustment period of 1-2 weeks. Depression - Assessment: Patient has been undergoing Spravato treatment once a week for the past four weeks, with some improvement in motivation. PHQ-9 score has decreased from 15 to 12 in the past month. Currently taking fluoxetine 40 mg and ketamine 100 mg. Patient reports ketamine was initially helpful for sleep but effectiveness decreased after 3-4 weeks. - Plan: - Continue Spravato once a week until coverage expires on November 27. - Monitor depressive symptoms and adjust treatment as needed. Sleep-related Anxiety - Assessment: Patient reports frustration upon waking up and difficulty returning to sleep. - Plan: - Monitor patient's response to Belsomra. - Consider adjusting treatment if sleep-related anxiety persists. Medication Coverage - Assessment: Belsomra is covered by the patient's insurance. Spravato coverage expires on November 27. - Plan: - Ensure patient has access to necessary medications. - Assist with any coverage issues as needed. - Send prescriptions to [facility]. 08/26/2024 ADHD (attention deficit hyperactivity disorder), combined type (ICD-10 - F90.2) Insomnia - Assessment: Patient reports rebound insomnia after stopping clonazepam. Currently taking daridorexant but still experiencing sleep disturbances. Has tried similar medications with increased anxiety. Genesight test indicates rapid metabolism of medications. Patient reports new issue of waking up at 3:00-3:30 AM. - Plan: - Discontinue zaleplon. - Initiate Belsomra 10 mg for one week, then increase to 20 mg if tolerated. - Instruct patient to take half a tablet at bedtime and another half if waking up in the middle of the night. - Monitor for sleep improvement and any side effects. - Advised patient there may be an adjustment period of 1-2 weeks. Depression - Assessment: Patient has been undergoing Spravato treatment once a week for the past four weeks, with some improvement in motivation. PHQ-9 score has decreased from 15 to 12 in the past month. Currently taking fluoxetine 40 mg and ketamine 100 mg. Patient reports ketamine was initially helpful for sleep but effectiveness decreased after 3-4 weeks. - Plan: - Continue Spravato once a week until coverage expires on November 27. - Monitor depressive symptoms and adjust treatment as needed. Sleep-related Anxiety - Assessment: Patient reports frustration upon waking up and difficulty returning to sleep. - Plan: - Monitor patient's response to Belsomra. - Consider adjusting treatment if sleep-related anxiety persists. Medication Coverage - Assessment: Belsomra is covered by the patient's insurance. Spravato coverage expires on November 27. - Plan: - Ensure patient has access to necessary medications. - Assist with any coverage issues as needed. - Send prescriptions to [facility]. 07/23/2024 ADHD (attention deficit hyperactivity disorder), combined type (ICD-10 - F90.2) Anxiety and Irritability due to Lorazepam Discontinuation - Assessment: Patient has been off Lorazepam for one and a half weeks and is experiencing increased irritability. However, discontinuing Lorazepam is advised as it can decrease the efficacy of Spravato. - Plan: - Keep the patient off Lorazepam. Insomnia and Mood Stabilization - Assessment: Patient is currently on Quetiapine 50 mg, which has shown some improvement in sleep and mood. An increase in dosage is recommended to further help with irritability and augment the efficacy of Fluoxetine. - Plan: - Increase Quetiapine dosage to 100 mg. Depression Management - Assessment: Patient's insurance does not cover VNS for depression. Spravato (esketamine) treatment, approved until November 2024, needs to be restarted. Patient has been trying to schedule Spravato treatments for 3-4 weeks. - Plan: - Restart Spravato treatment, beginning with once-a-week sessions at 84 mg. ADHD Management - Assessment: Patient is currently on Vyvanse 60 mg, which seems to be working well. Charisse MARZENA did not work for the patient. - Plan: - Continue Vyvanse 60 mg. Follow-up and Monitoring - Plan: - Schedule a one-month follow-up appointment to assess response to increased Quetiapine dosage and restarted Spravato treatment. - Patient will complete a UDT this afternoon before 5 pm. - Complete necessary paperwork for re-registering with the [facility] program for Spravato treatment. Current Medications - Vyvanse 60 mg - Zaleplon (Sonata) - Propranolol 10 mg - Fluoxetine 40 mg - Quetiapine (Seroquel) 50 mg, to be increased to 100 mg 09/25/2024 ADHD (attention deficit hyperactivity disorder), combined type (ICD-10 - F90.2) Depression and Irritability - Assessment: Patient reports feeling irritable and short-tempered, especially with son and work. No suicidal thoughts reported. - Plan: - Continue esketamine (Spravato) once a week - Decrease fluoxetine to 20 mg daily - Add low dose of Auvelity (sample provided): start with one capsule once a day in the morning for three days, then increase to twice a day with an eight-hour gap - Re-evaluate in one month Anxiety - Plan: - Monitor for potential increase in propranolol levels due to decreased fluoxetine dose, which may help with anxiety Insomnia - Assessment: Patient reports inconsistent effectiveness of sleep medication, with some nights of good sleep and others with difficulty falling asleep. - Plan: - Continue Belsomra for sleep - Consider 90-day prescription at the next visit Fatigue and Decreased Motivation - Assessment: Patient reports low motivation for housework and some work tasks. Patient has been on Vyvanse for 5-6 years, may need a change in medication class. - Plan: - Consider switching Vyvanse to methylphenidate at the next visit if Auvelity is not effective - Re-evaluate in one month Medication Refill - Plan: - Refill Vyvanse for a 30-day supply this month - Discuss potential medication changes at the next visit - Continue quetiapine at 100 mg Additional Notes - Assessment: Patient reports difficulty adjusting to daylight savings time changes. - Plan: - Consider impact of seasonal changes on mood and energy levels 06/01/2024 ADHD (attention deficit hyperactivity disorder), combined type (ICD-10 - F90.2) Major Depressive Disorder - Assessment: Patient reports worsening depression over the past month despite being on current medications. Patient has a history of trying multiple treatments with limited success. - Plan: - Continue Jornay PM, fluoxetine, and Contrave. - Initiate quetiapine 50 mg at bedtime for a month to address depressive symptoms and irritability. - Begin the referral process for ECT and consider esketamine treatment if needed. - Reevaluate the patient's response to quetiapine and overall depressive symptoms in one month. Attention Deficit Hyperactivity Disorder (ADHD) - Assessment: Patient is currently on Jornay PM for ADHD symptoms. - Plan: Continue Jornay PM and monitor the patient's response. Insomnia - Assessment: Patient reports taking multiple medications to fall asleep. - Plan: Continue current sleep medications (Zolpidem, lorazepam) and monitor the patient's sleep quality. Weight Management - Assessment: Patient is currently on Contrave for weight management but reports no significant improvement. - Plan: Continue Contrave for now and reevaluate its effectiveness in one month. Insurance Coverage for Treatment Options - Assessment: Patient reports difficulty with insurance coverage for VNS and Latuda. - Plan: - Discuss the insurance coverage issue with the VNS representative phlebotomy services. - Consider alternative medications (quetiapine, aripiprazole) that are covered by the patient's insurance. 05/06/2024 Body mass index (BMI) 30.0-30.9, adult (ICD-10 - Z68.30) Major Depressive Disorder - Assessment: Patient reports no improvement in depression or anxiety after starting Rexulti for two weeks. The patient also reports increased appetite and waking up in the middle of the night to eat, which is unusual for them. - Plan: - Discontinue Rexulti. - Reassess in one month. Weight Management - Assessment: Patient is currently on Contrave and inquires about the duration for improvement. - Plan: - Increase Contrave dosage to two tablets twice a day (total of four tablets daily). ADHD and Binge Eating - Assessment: Patient is currently on Vyvanse and reports a decrease in effectiveness over time. - Plan: - Discontinue Vyvanse. - Switch to Jornay PM 80 mg, to be taken at night for a slow-release effect in the morning. Vagus Nerve Stimulation (VNS) Therapy - Assessment: Patient has not received any updates regarding VNS therapy. - Plan: - Follow up with Hamida from the VNS team via email to obtain further information on the status of the therapy. Follow-up Appointment - Plan: - Schedule a follow-up appointment in one month to reassess the patient's progress and make any necessary adjustments to the treatment plan. 05/06/2024 ADHD (attention deficit hyperactivity disorder), combined type (ICD-10 - F90.2) Major Depressive Disorder - Assessment: Patient reports no improvement in depression or anxiety after starting Rexulti for two weeks. The patient also reports increased appetite and waking up in the middle of the night to eat, which is unusual for them. - Plan: - Discontinue Rexulti. - Reassess in one month. Weight Management - Assessment: Patient is currently on Contrave and inquires about the duration for improvement. - Plan: - Increase Contrave dosage to two tablets twice a day (total of four tablets daily). ADHD and Binge Eating - Assessment: Patient is currently on Vyvanse and reports a decrease in effectiveness over time. - Plan: - Discontinue Vyvanse. - Switch to Jornay PM 80 mg, to be taken at night for a slow-release effect in the morning. Vagus Nerve Stimulation (VNS) Therapy - Assessment: Patient has not received any updates regarding VNS therapy. - Plan: - Follow up with Hamida from the VNS team via email to obtain further information on the status of the therapy. Follow-up Appointment - Plan: - Schedule a follow-up appointment in one month to reassess the patient's progress and make any necessary adjustments to the treatment plan. Plan Of Treatment Next Appt Details Provider Name:Naveen Cardenas , 01/28/2025 01:15:00 PM, [address], [facility] [address], [place], [address], Insurance Providers Payer Name Payer Address Payer Phone Subscriber Number Group Number Insured Name Patient Relationship to Insured Coverage Start Date Coverage End Date [facility] [address] [address] [place] [address] [id number] TOMMY ELADIO Self - patient is the insured Spravato With Pr [address] [place] [address] [id number] TOMMY ELADIO Self - patient is the insured Medications Administered Medication Instructions Date of Administration Dosage Notes Spravato (84 MG Dose) 07/28/2024 84 mg Spravato (84 MG Dose) 08/04/2024 84 mg Spravato (84 MG Dose) 08/11/2024 84 mg Spravato (84 MG Dose) 08/18/2024 84 mg Spravato (84 MG Dose) 08/28/2024 84 mg Spravato (84 MG Dose) 09/01/2024 84 mg Spravato (84 MG Dose) 09/15/2024 84 mg Medical (General) History Medical History History ICD Code Problems: Body mass index 30+ - obesity Fatigue Generalized anxiety disorder Panic attack Primary insomnia Severe recurrent major depression withou t psychotic features Vitamin D deficiency , Past Psychiatric History: An xiety Disorder,Panic Disorder,Major Depressive Episode undefined abdominal aortic aneurysm: No atrial fibrillation: No chronic fatigue syndrome: No essential tremor: No hyperlipidemia: No hypertension: No Parkinson's disease: No restless leg syndrome: No stroke: No subdural hematoma: No type 1 diabetes mellitus: No type 2 diabetes mellitus: No vitamin B12 deficiency: Yes vitamin D deficiency: Yes Surgical History Surgery Date(Month/Year) Tonsilectomy/adenoids 11/18/1998 Breast surgery (14716) reduction 003
--- OUTSIDE RECORDS SUMMARY | 2024-12-10 20:50 | XMS_ITS ---
Author Organization [facility] Address [address] [address] Care Team Providers Care Gin Clerk Name Role Phone Naveen Holly Unavailable [phone] REASON FOR VISIT Spravato Follow Up Social History Sex Assigned At : Social History Observation Description Sex Assigned At Female Encounters Encounter Location Date Provider Diagnosis [facility] [address] [address] 10/29/2024 Naveen Holly Plan Of Treatment Next Appt Details Provider Name:Naveen Holly , 01/28/2025 01:15:00 PM, [address], [facility] [address], [place], [address], Progress Notes * KEVINNITISHFRANCESCA RealOB: [birth year] (38 yo F)Acc No.[id number]:10/29/2024 Esketamine Follow up Patient:?ELADIO SANDERS Provider:?NAVEEN HOLLY MD :1985???Age:38 Y???Sex:Female D ate:10/29/2024 Address:[address] [facility] Subjective: * Chief Complaints: * ???1. Spravato Follow Up. * Medical History:? Objective: * Vitals:? Assessment: Plan: * Treatment: * Procedure Codes:?NS NO SHOW * Billing Information: * Visit Code:? * Procedure Codes:? NS NO SHOW. * L GOVERNMENT LEGISLATOR Sign off status: Completed true * Provider:?NAVEEN HOLLY MD Date:?10/29 Generated for Aron og/Maximino/Cortney on:?12/10/2024 08:49 PM LOCAL GOVERNMENT LEGISLATOR
--- OUTSIDE RECORDS SUMMARY | 2024-12-10 20:50 | XMS_ITS | Referral Summary ---
Author Organization [facility] Address [address] [place] [address] Care Team Providers Care Campus Supervisor Name Role Phone No, Physician Primary Care Provider [phone] Allergies Active Allergy Reactions Criticality Noted Date [...] (10/04/2020): Added automatically from request for surgery [id number] Melanocytic nevi of right lower limb, including hip 09/28/2020 Overview (09/28/2020): Added automatically from request for surgery [id number] Mitral valve prolapse 12/11/2019 Paroxysmal SVT (supraventricular [...] Influenza, Trivalent, IM (MDV) 07/12/2014,2013,07/03/2013 Tdap 02/12/2014 Social History Tobacco Use Types Packs/Day Years [...] on file Legal Sex Female 9:11 PM COLLET DRILLER Gender Identity Female 12/06/2020 12:10 PM COLLET DRILLER Sexual Orientation Straight 12/06/2020 12 :10 PM COLLET DRILLER Last Filed Vital Signs Vital Sign Reading Time Taken Comments Blood Pressure 114/83 07/13/2024 11:28 AM CDT Pulse 82 07/13/2024 11:28 AM CDT Temperature 36.7 ??C (98 ??F) 07/13/2024 11:28 AM CDT Respiratory Rate 13 11/29/2020 9:20 AM COLLET DRILLER Oxygen Saturation 100% 07/13/2024 11:28 AM CDT Inhaled Oxygen Concentration - - Weight 80.3 kg (177 lb) 07/13/2024 11:28 AM CDT Height 165.1 cm (5' 5 ) 07/13/2024 11:28 AM CDT Body Mass Index 29.45 07/13/2024 11:28 AM CDT Plan of Treatment Not on file Procedures Procedure Name Priority Date/Time Associated Diagnosis [...] Most Recently Relevant to Health Maintenance Insurance [employer] [facility] [employer] [place] [address] [employer] Member Subscriber Plan / Payer (Ef fective 2022-Present) Name:Cayla Bills Relation to Subscriber:Self Name:Cayla Bills Payer ID:[id number] (NAIC) Type:[employer] Address: [address] [place] [id number] Care Teams Campus Supervisor Relationship Specialty Start Date End Date No, Physician PCP - General 12/03/18
== END 2024-12-09 01:40 | disposition home or self-care (01) ==
PROVIDERS: Emergency Provider Emergency Medicine
DX: S05.01XA Injury of conjunctiva and corneal abrasion without foreign body, right eye, initial encounter (principal); X58.XXXA Exposure to other specified factors, initial encounter; F41.8 Other specified anxiety disorders; G43.909 Migraine, unspecified, not intractable, without status migrainosus
CPT/HCPCS: 99283; A9270